=== PATIENT | female | born 1945 | race African-American/Black ===

== ENCOUNTER 2019-01-06 11:32 | Emergency (ER) | payer MEDICARE, MEDICAID ==
[~2019-01-06] VITALS: Ht 165.1 cm; Wt 105.0 kg
[~2019-01-06 11:32] MED LIST: ATOR20TA65 MT; CHOL200059 MT; GABA-531 MT; HYDR-523 PO; LOSA100T32 MT; MUPI15CR13 TP; OMEP40CA34 MT
[2019-01-06] MEDS ORDERED: ONDANSETRON HCL 4MG/2ML INJ IV ONE (15:00)
[2019-01-06] MEDS ORDERED: MORPHINE SULFATE 10 MG/ML CPJ IV ONE (15:00)
[2019-01-06] MEDS ORDERED: FAMOTIDINE 20MG/2ML VIAL IV ONE (15:00)
[2019-01-06 15:34] LABS: BASOPHILS % 0.8 % (0.0-2.0); EOSINOPHILS % 0.1 % (0.0-5.0); HEMATOCRIT. 41.1 % (36.0-48.0); HEMOGLOBIN. 13.7 g/dL (12.0-16.0); LYMPHOCYTES % 24.2 % (20.0-50.0); MEAN CORPUSCULAR HEMOGLOBIN 29.4 pg (28.0-32.0); MEAN CORPUSCULAR VOLUME 88.2 fL (81.0-99.0); MEAN PLATELET VOLUME 9.3 fl (7.4-10.4); MONOCYTES % 5.3 % (2.0-8.0); NEUTROPHILS % 69.6 % (40.0-76.0); PLATELET 169 x1000/uL (130-400); RED BLOOD CELL COUNT 4.66 mill/uL (4.2-5.4); RED CELL DISTRIBUTION WIDTH 14.3 % (11.6-14.6)
[2019-01-06 15:37] LABS: CHLORIDE 107 mEq/L (98-107)
[2019-01-06 15:40] LABS: PROTHROMBIN TIME 10.6 sec (9.6-11.0)
[2019-01-06 16:28] LABS: CLARITY URINE CLEAR (CLEAR); COLOR URINE YELLOW (YELLOW); KETONES URINE TRACE (NEGATIVE); LEUKOCYTE ESTERASE URINE 2+ (NEGATIVE); NITRITE URINE NEGATIVE (NEGATIVE); OCCULT BLOOD URINE NEGATIVE (NEGATIVE); PROTEIN URINE NEGATIVE (NEGATIVE); SPECIFIC GRAVITY URINE 1.015 (1.005-1.030); UROBILINOGEN URINE 0.2 E.U./dL (0.2-1.0)
[2019-01-06] MEDS ORDERED: TRAMADOL 50MG TABLET PO ONE (17:45)
[2019-01-06 22:52] VITALS: BP 135/78
== END 2019-01-06 23:08 | disposition home or self-care (01) ==
LOC: ER 11:32
DX: R10.13 Epigastric pain (principal); M54.6 Pain in thoracic spine; G89.29 Other chronic pain; F41.9 Anxiety disorder, unspecified; J44.9 Chronic obstructive pulmonary disease, unspecified; Z87.440 Personal history of urinary (tract) infections; Z87.09 Personal history of other diseases of the respiratory system; Z90.710 Acquired absence of both cervix and uterus; K59.00 Constipation, unspecified; Z79.899 Other long term (current) drug therapy
CPT/HCPCS: 36415; 80053; 81003; 83690; 85025; 85610; 96374; 96375; 99283; J2270; J2405; J3490

== ENCOUNTER 2020-11-12 03:10 | Emergency (ER) | payer MEDICARE, MEDICAID ==
[~2020-11-12] VITALS: Ht 170.2 cm; Wt 89.0 kg
[~2020-11-12 03:10] MED LIST changes: -GABA-531 MT; +GABA-532 MT; +OMEP40CA20 MT; -OMEP40CA34 MT
[2020-11-12] MEDS: ONDANSETRON HCL 4MG/2ML INJ IV STA (04:09)
[2020-11-12] MEDS: SODIUM CHLORIDE 0.9% 1,000 ML IV ONE (04:09)
[2020-11-12 04:12] LABS: BASOPHILS % 0.6 % (0.0-2.0); EOSINOPHILS % 0.4 % (0.0-5.0); HEMATOCRIT. 39.6 % (36.0-48.0); HEMOGLOBIN. 13.7 g/dL (12.0-16.0); LYMPHOCYTES % 24.5 % (20.0-50.0); MEAN CORPUSCULAR VOLUME 89.9 fL (81.0-99.0); MEAN PLATELET VOLUME 8.7 fl (7.4-10.4); MONOCYTES % 8.8 % (2.0-8.0); NEUTROPHILS % 65.7 % (40.0-76.0); PLATELET 163 x1000/uL (130-400); RED BLOOD CELL COUNT 4.41 mill/uL (4.2-5.4); RED CELL DISTRIBUTION WIDTH 14.4 % (11.6-14.6)
[2020-11-12 04:22] LABS: CHLORIDE 108 mEq/L (98-107)
[2020-11-12] MEDS: HYDROCODONE/ACETAMINOPHEN 5/325MG TABLET PO ONE (05:45)
[2020-11-12] MEDS ORDERED: PANT40SU MT (05:47)
[2020-11-12] MEDS ORDERED: METO5TAB86 MT (05:47)
[2020-11-12 06:00] VITALS: BP 138/90
== END 2020-11-12 06:32 | disposition home or self-care (01) ==
LOC: ER 03:10
DX: M54.9 Dorsalgia, unspecified (principal); I49.9 Cardiac arrhythmia, unspecified
CPT/HCPCS: 36415; 71045; 74176; 80053; 83605; 83690; 85025; 93005; 96361; 96374; 99285; J2405; J7030

== ENCOUNTER 2021-01-05 14:05 | Emergency (ER) | payer MEDICARE, MEDICAID ==
[~2021-01-05] VITALS: Ht 165.1 cm; Wt 77.0 kg
[~2021-01-05 14:05] MED LIST changes: +METO5TAB86 MT; +PANT40SU MT
[2021-01-05 15:37] LABS: CHLORIDE 105 mEq/L (98-107); EOSINOPHILS % 4.2 % (0.0-5.0); HEMATOCRIT. 36.7 % (36.0-48.0); HEMOGLOBIN. 12.1 g/dL (12.0-16.0); LYMPHOCYTES % 47.4 % (20.0-50.0); MEAN CORPUSCULAR HEMOGLOBIN 29.9 pg (28.0-32.0); MEAN CORPUSCULAR VOLUME 90.8 fL (81.0-99.0); MEAN PLATELET VOLUME 9.8 fl (7.4-10.4); MONOCYTES % 9.5 % (2.0-8.0); NEUTROPHILS % 37.9 % (40.0-76.0); PLATELET 133 x1000/uL (130-400); RED BLOOD CELL COUNT 4.04 mill/uL (4.2-5.4); RED CELL DISTRIBUTION WIDTH 13.4 % (11.6-14.6)
[2021-01-05] MEDS ORDERED: ACETAMINOPHEN 650MG/20.3ML UDC PO ONE (17:30)
[2021-01-05] MEDS ORDERED: KETOROLAC 15MG/ML VIAL IV ONE (18:15)
[2021-01-05 20:17] VITALS: BP 138/88
== END 2021-01-05 20:27 | disposition home or self-care (01) ==
LOC: ER 14:05
DX: M79.89 Other specified soft tissue disorders (principal); F41.9 Anxiety disorder, unspecified; J44.9 Chronic obstructive pulmonary disease, unspecified; E78.00 Pure hypercholesterolemia, unspecified; I10 Essential (primary) hypertension; Z87.440 Personal history of urinary (tract) infections; Z90.710 Acquired absence of both cervix and uterus; Z79.899 Other long term (current) drug therapy
CPT/HCPCS: 36415; 71045; 80053; 83880; 84484; 85025; 93005; 93970; 96374; 99285; J1885

== ENCOUNTER 2021-02-21 07:55 | Emergency (ER) | payer MEDICARE, MEDICAID ==
[~2021-02-21] VITALS: Ht 160 cm; Wt 89.0 kg
[2021-02-21] MEDS ORDERED: ACETAMINOPHEN 325MG TABLET PO ONE (08:30)
[2021-02-21] MEDS ORDERED: VISCOUS LIDOCAINE 2% 15 ML UDC MM PRN (08:30)
[2021-02-21] MEDS ORDERED: CEFP200T13 MT (08:47)
[2021-02-21] MEDS ORDERED: LIDO15CR11 TP (08:50)
[2021-02-21 08:57] VITALS: BP 137/87
== END 2021-02-21 08:57 | disposition home or self-care (01) ==
LOC: ER 07:55
DX: N76.6 Ulceration of vulva (principal); J44.1 Chronic obstructive pulmonary disease with (acute) exacerbation; E78.00 Pure hypercholesterolemia, unspecified; I10 Essential (primary) hypertension; Z88.9 Allergy status to unspecified drugs, medicaments and biological substances; Z88.6 Allergy status to analgesic agent
CPT/HCPCS: 99283

== ENCOUNTER 2021-06-22 10:13 | Inpatient (IN) | payer MEDICARE, MEDICAID ==
[2021-06-22] VITALS (48 sets, daily range): BP systolic 47–145; BP diastolic 37–92
[~2021-06-22] VITALS: Ht 172.7 cm; Wt 88.5 kg
[~2021-06-22 10:13] MED LIST changes: +CEFP200T13 MT; +LIDO15CR11 TP
[2021-06-22] MEDS ORDERED: PANTOPRAZOLE SODIUM 40 MG/VIAL IV STA (10:21)
[2021-06-22] MEDS ORDERED: ETOMIDATE 2MG/ML 10ML VIAL IV ONE (10:30)
[2021-06-22] MEDS ORDERED: SODIUM CHLORIDE 0.9% 1,000 ML IV ONE ×2 (10:30→12:00)
[2021-06-22] MEDS ORDERED: PROPOFOL 10MG/ML 100ML 100 ML IV ONE (10:30)
[2021-06-22 10:47] LABS: BG BASE EXCESS -5.3 mmol/L (-2.0-2.0); BG CARBOXYHEMOGLOBIN 0.5 % (0.5-1.5); BG DEOXYHEMOGLOBIN 3.5 % (0.0-5.0); BG HCO3 ACT 17.9 mmol/L (22.0-26.0); BG METHEMOGLOBIN 0.3 % (0.0-1.5); BG OXYGEN SATURATION 96.5 % (92.0-98.5); BG OXYHEMOGLOBIN 95.7 % (94.0-97.0); BG PCO2 28.5 mmHg (35.0-45.0); BG PH 7.415 (7.350-7.450); BG PO2 85.3 mmHg (75.0-100.0); BG SAMPLE SITE RIGHT BRACHIAL; BG TOTAL HEMOGLOBIN 13.1 g/dL (12.0-18.0); BG VENT MODE ROOM AIR
[2021-06-22 10:48] LABS: BASOPHILS % 0.1 % (0.0-2.0); EOSINOPHILS % 0.1 % (0.0-5.0); HEMATOCRIT. 38.5 % (36.0-48.0); HEMOGLOBIN. 12.6 g/dL (12.0-16.0); LYMPHOCYTES % 27.7 % (20.0-50.0); MEAN CORPUSCULAR HEMOGLOBIN 30.2 pg (28.0-32.0); MEAN CORPUSCULAR VOLUME 92.3 fL (81.0-99.0); MEAN PLATELET VOLUME 10.4 fl (7.4-10.4); MONOCYTES % 7.7 % (2.0-8.0); NEUTROPHILS % 64.4 % (40.0-76.0); PLATELET 166 x1000/uL (130-400); RED BLOOD CELL COUNT 4.17 mill/uL (4.2-5.4); RED CELL DISTRIBUTION WIDTH 14.5 % (11.6-14.6)
[2021-06-22 10:55] LABS: CHLORIDE 111 mEq/L (98-107)
[2021-06-22 11:04] LABS: CREATINE KINASE 212 IU/L (26-192)
[2021-06-22 11:45] LABS: CLARITY URINE CLEAR (CLEAR); COLOR URINE YELLOW (YELLOW); KETONES URINE TRACE (NEGATIVE); LEUKOCYTE ESTERASE URINE NEGATIVE (NEGATIVE); NITRITE URINE NEGATIVE (NEGATIVE); OCCULT BLOOD URINE NEGATIVE (NEGATIVE); PH URINE 5.5 (4.5-8.0); PROTEIN URINE TRACE (NEGATIVE); SPECIFIC GRAVITY URINE 1.036 (1.005-1.030); UROBILINOGEN URINE 0.2 E.U./dL (0.2-1.0)
[2021-06-22] MEDS ORDERED: PIPERACILLIN/TAZ 3.375G PREMIX 50 ML IV ONE (12:00)
[2021-06-22 12:17] LABS: *AMPHETAMINES SCREEN URINE NEGATIVE (NEGATIVE); *BARBITURATES SCREEN URINE NEGATIVE (NEGATIVE); *BENZODIAZEPINES SCREEN URINE NEGATIVE (NEGATIVE); *COCAINE SCREEN URINE NEGATIVE (NEGATIVE); CANNABINOID URINE SCREEN NEGATIVE (NEGATIVE); METHADONE URINE SCREEN NEGATIVE (NEGATIVE); OPIATES URINE SCREEN PRESUMTIVE POSITIVE (NEGATIVE); PHENCYCLIDINE URINE SCREEN NEGATIVE (NEGATIVE)
[2021-06-22 12:41] LABS: BG BASE EXCESS -3.2 mmol/L (-2.0-2.0); BG CARBOXYHEMOGLOBIN 0.3 % (0.5-1.5); BG DEOXYHEMOGLOBIN 1.8 % (0.0-5.0); BG FRACTION INSPIRED OXYGEN 100; BG HCO3 ACT 23.4 mmol/L (22.0-26.0); BG METHEMOGLOBIN 0.4 % (0.0-1.5); BG OXYGEN SATURATION 98.2 % (92.0-98.5); BG OXYHEMOGLOBIN 97.5 % (94.0-97.0); BG PCO2 47.8 mmHg (35.0-45.0); BG PH 7.307 (7.350-7.450); BG PO2 126.8 mmHg (75.0-100.0); BG SAMPLE SITE RIGHT RADIAL; BG TOTAL HEMOGLOBIN 12.7 g/dL (12.0-18.0); BG VENT MODE VENT - AC
[2021-06-22] MEDS ORDERED: ACETAMINOPHEN 325MG TABLET PO PRN ×2 (13:00)
[2021-06-22] MEDS ORDERED: DOCUSATE SODIUM 100MG CAPSULE PO PRN (13:00)
[2021-06-22] MEDS ORDERED: NOREPINEPHRINE 8 MG in DEXT 5% WATER 242 ML IV PRN (13:00)
[2021-06-22] MEDS ORDERED: ZOLPIDEM TARTRATE 5MG TABLET PO PRN (13:00)
[2021-06-22] MEDS ORDERED: ENOXAPARIN 40MG/0.4ML SYR SUBCUT SCH (13:00)
[2021-06-22] MEDS ORDERED: IPRATROPIUM/ALBUTEROL 0.5-3(2.5)MG/3ML NEB NEB PRN (13:00)
[2021-06-22] MEDS ORDERED: CLONIDINE 0.1MG TABLET PO PRN (13:00)
[2021-06-22] MEDS ORDERED: ONDANSETRON HCL 4MG/2ML INJ IV PRN (13:00)
[2021-06-22] MEDS ORDERED: PIPERACILLIN/TAZ 3.375G PREMIX 50 ML IV SCH (13:00)
[2021-06-22] MEDS ORDERED: MAGNESIUM/ALUMINUM HYDROXIDE/SIMETHICONE 30ML UDC PO PRN (13:00)
[2021-06-22] MEDS ORDERED: NITROGLYCERIN 0.4MG TABLET SL SL PRN (13:00)
[2021-06-22] MEDS ORDERED: FENTANYL CITRATE/PF 1,000 MCG in SODIUM CHLORIDE 0.9% 80 ML IV PRN (13:15)
[2021-06-22] MEDS: DEXT 5%/LACTATED RINGERS 1,000 ML IV SCH ×2 (13:26→23:13)
[2021-06-22] MEDS: PROPOFOL 10MG/ML 100ML 100 ML IV SCH ×2 (13:28→18:01)
[2021-06-22] MEDS: METHYLPREDNISOLONE SOD SUCC 40 MG/ML VIAL IV SCH ×2 (13:31→22:16)
[2021-06-22 13:36] LABS: T4 FREE 0.98 ng/dL (0.76-1.46)
[2021-06-22] MEDS: PIPERACILLIN/TAZOBACTAM 3.375G in DEXT 5% WATER 50ML IV SCH ×2 (14:34→22:16)
[2021-06-22 14:41] LABS: FOLIC ACID (FOLATE) SERUM >20 ng/mL ng/mL (>5.38); VITAMIN B12 SERUM 258 pg/mL (211-911)
[2021-06-22] MEDS ORDERED: VANCOMYCIN 1,750 MG in DEXT 5% WATER 500 ML IV NR (16:00)
[2021-06-22] MEDS: IPRATROPIUM/ALBUTEROL 0.5-3(2.5)MG/3ML NEB HHN SCH ×2 (16:48→20:09)
[2021-06-22] MEDS ORDERED: ENOXAPARIN 30MG/0.3ML SYR SUBCUT SCH (18:00)
[2021-06-22] MEDS: FENTANYL 2500MCG/250ML PMX 250 ML IV PRN (19:53)
[2021-06-22] MEDS: PROPOFOL 10MG/ML 100ML 100 ML IV PRN (23:09)
[2021-06-23] VITALS (89 sets, daily range): BP systolic 66–142; BP diastolic 38–104
[2021-06-23] MEDS: IPRATROPIUM/ALBUTEROL 0.5-3(2.5)MG/3ML NEB HHN SCH ×2 (00:25→04:19)
[2021-06-23] MEDS: ENOXAPARIN 60MG/0.6ML SYR SUBCUT NR ×2 (01:06→01:15)
[2021-06-23] MEDS: METHYLPREDNISOLONE SOD SUCC 40 MG/ML VIAL IV SCH ×2 (05:29→17:22)
[2021-06-23] MEDS: PIPERACILLIN/TAZOBACTAM 3.375G in DEXT 5% WATER 50ML IV SCH ×3 (05:30→21:54)
[2021-06-23] MEDS: DEXT 5%/LACTATED RINGERS 1,000 ML IV SCH ×3 (05:30→21:54)
[2021-06-23] MEDS ORDERED: VANCOMYCIN 1GM PMX (XELLIA) 200 ML IV SCH (06:00)
[2021-06-23 06:33] LABS: BASOPHILS % 0.3 % (0.0-2.0); HEMATOCRIT. 32.9 % (36.0-48.0); HEMOGLOBIN. 11.3 g/dL (12.0-16.0); LYMPHOCYTES % 8.2 % (20.0-50.0); MEAN CORPUSCULAR HEMOGLOBIN 31.1 pg (28.0-32.0); MEAN PLATELET VOLUME 10.6 fl (7.4-10.4); MONOCYTES % 6.5 % (2.0-8.0); PLATELET 98 x1000/uL (130-400); RED BLOOD CELL COUNT 3.62 mill/uL (4.2-5.4); RED CELL DISTRIBUTION WIDTH 14.5 % (11.6-14.6)
[2021-06-23 07:04] LABS: CHLORIDE 112 mEq/L (98-107)
[2021-06-23 07:13] LABS: PHOSPHORUS 2.1 mg/dL (2.5-4.9)
[2021-06-23] MEDS: PROPOFOL 10MG/ML 100ML 100 ML IV PRN ×4 (07:37→22:10)
[2021-06-23] MEDS: ASPIRIN 81MG EC TABLET PO SCH (08:46)
[2021-06-23] MEDS: ENOXAPARIN 100MG/ML SYR SUBCUT SCH ×2 (09:00→21:00)
[2021-06-23] MEDS ORDERED: ASPIRIN 325MG EC TABLET PO SCH (09:00)
[2021-06-23] MEDS: PANTOPRAZOLE SODIUM 40 MG/VIAL IV SCH (09:22)
[2021-06-23] MEDS: ZINC SULFATE 220 MG ( 50 ) CAPSULE PO SCH (09:25)
[2021-06-23 12:57] LABS: HEPATITIS B SURFACE ANTIGEN NEGATIVE
[2021-06-23 13:00] LABS: BG BASE EXCESS 1.9 mmol/L (-2.0-2.0); BG CARBOXYHEMOGLOBIN 0.3 % (0.5-1.5); BG FRACTION INSPIRED OXYGEN 80; BG HCO3 ACT 26.3 mmol/L (22.0-26.0); BG OXYHEMOGLOBIN 98.7 % (94.0-97.0); BG PH 7.435 (7.350-7.450); BG SAMPLE SITE RIGHT RADIAL; BG TOTAL HEMOGLOBIN 11.8 g/dL (12.0-18.0); BG VENT MODE VENT - AC
[2021-06-23] MEDS: VANCOMYCIN 1GM PMX (XELLIA) 200 ML IV SCH (14:49)
[2021-06-23] MEDS ORDERED: VANCOMYCIN 1250MG in DEXTROSE 5% WATER 250ML IV SCH (16:00)
[2021-06-24] VITALS (91 sets, daily range): BP systolic 80–142; BP diastolic 37–115
[2021-06-24] MEDS: VANCOMYCIN 1GM PMX (XELLIA) 200 ML IV SCH ×2 (01:19→13:11)
[2021-06-24] MEDS: PROPOFOL 10MG/ML 100ML 100 ML IV SCH ×5 (01:20→17:03)
[2021-06-24] MEDS: IPRATROPIUM/ALBUTEROL 0.5-3(2.5)MG/3ML NEB HHN SCH ×5 (04:34→20:27)
[2021-06-24] MEDS: DEXT 5%/LACTATED RINGERS 1,000 ML IV SCH ×2 (04:44→12:51)
[2021-06-24] MEDS: PIPERACILLIN/TAZOBACTAM 3.375G in DEXT 5% WATER 50ML IV SCH ×3 (06:03→22:22)
[2021-06-24] MEDS: FENTANYL 2500MCG/250ML PMX 250 ML IV PRN (06:03)
[2021-06-24 06:34] LABS: CHLORIDE 110 mEq/L (98-107)
[2021-06-24] MEDS: METHYLPREDNISOLONE SOD SUCC 40 MG/ML VIAL IV SCH ×2 (08:37→17:02)
[2021-06-24] MEDS: PANTOPRAZOLE SODIUM 40 MG/VIAL IV SCH (08:37)
[2021-06-24] MEDS: ASPIRIN 81MG EC TABLET PO SCH (08:38)
[2021-06-24] MEDS: ZINC SULFATE 220 MG ( 50 ) CAPSULE PO SCH (08:38)
[2021-06-24] MEDS: ENOXAPARIN 100MG/ML SYR SUBCUT SCH (08:39)
[2021-06-24 09:31] LABS: BASOPHILS % 0.4 % (0.0-2.0); EOSINOPHILS % 0.8 % (0.0-5.0); HEMATOCRIT. 31.4 % (36.0-48.0); HEMOGLOBIN. 10.5 g/dL (12.0-16.0); MEAN CORPUSCULAR HEMOGLOBIN 30.4 pg (28.0-32.0); MEAN CORPUSCULAR VOLUME 91.1 fL (81.0-99.0); MEAN PLATELET VOLUME 11.8 fl (7.4-10.4); MONOCYTES % 10.1 % (2.0-8.0); NEUTROPHILS % 78.7 % (40.0-76.0); PLATELET 94 x1000/uL (130-400); RED BLOOD CELL COUNT 3.44 mill/uL (4.2-5.4); RED CELL DISTRIBUTION WIDTH 14.8 % (11.6-14.6)
[2021-06-24 09:35] LABS: BG BASE EXCESS 2.8 mmol/L (-2.0-2.0); BG CARBOXYHEMOGLOBIN 0.3 % (0.5-1.5); BG DEOXYHEMOGLOBIN 5.5 % (0.0-5.0); BG FRACTION INSPIRED OXYGEN 40; BG HCO3 ACT 26.8 mmol/L (22.0-26.0); BG METHEMOGLOBIN 0.4 % (0.0-1.5); BG OXYGEN SATURATION 94.5 % (92.0-98.5); BG OXYHEMOGLOBIN 93.8 % (94.0-97.0); BG PCO2 39.2 mmHg (35.0-45.0); BG PH 7.453 (7.350-7.450); BG PO2 70.2 mmHg (75.0-100.0); BG SAMPLE SITE LEFT RADIAL; BG TOTAL HEMOGLOBIN 11.3 g/dL (12.0-18.0); BG VENT MODE VENT - AC
[2021-06-24] MEDS ORDERED: FUROSEMIDE 100MG/10ML VIAL IVP NR (13:45)
[2021-06-24 14:46] LABS: PARTIAL THROMBOPLASTIN TIME 30.4 sec (23.4-31.0); PROTHROMBIN TIME 10.7 sec (9.6-11.0)
[2021-06-24] MEDS: ENOXAPARIN 40MG/0.4ML SYR SUBCUT SCH (17:00)
[2021-06-24] MEDS: FUROSEMIDE 40MG/4ML VIAL IVP SCH (17:02)
[2021-06-25] VITALS (58 sets, daily range): BP systolic 80–141; BP diastolic 30–91
[2021-06-25] MEDS: IPRATROPIUM/ALBUTEROL 0.5-3(2.5)MG/3ML NEB HHN SCH ×6 (00:27→20:40)
[2021-06-25] MEDS: VANCOMYCIN 1GM PMX (XELLIA) 200 ML IV SCH ×2 (01:17→21:16)
[2021-06-25] MEDS: PROPOFOL 10MG/ML 100ML 100 ML IV PRN ×3 (01:19→23:58)
[2021-06-25] MEDS: FENTANYL 2500MCG/250ML PMX 250 ML IV PRN ×2 (03:47→21:59)
[2021-06-25] MEDS: FUROSEMIDE 40MG/4ML VIAL IVP SCH ×2 (05:32→18:55)
[2021-06-25] MEDS: PIPERACILLIN/TAZOBACTAM 3.375G in DEXT 5% WATER 50ML IV SCH ×3 (05:55→21:56)
[2021-06-25 06:49] LABS: CHLORIDE 108 mEq/L (98-107)
[2021-06-25] MEDS ORDERED: FUROSEMIDE 40MG/4ML VIAL IVP SCH (07:15)
[2021-06-25 07:29] LABS: HEMATOCRIT. 30.1 % (36.0-48.0); HEMOGLOBIN. 10.1 g/dL (12.0-16.0); MEAN CORPUSCULAR HEMOGLOBIN 30.9 pg (28.0-32.0); MEAN CORPUSCULAR VOLUME 91.8 fL (81.0-99.0); MEAN PLATELET VOLUME 11.5 fl (7.4-10.4); PLATELET 88 x1000/uL (130-400); RED BLOOD CELL COUNT 3.28 mill/uL (4.2-5.4); RED CELL DISTRIBUTION WIDTH 14.5 % (11.6-14.6)
[2021-06-25 08:12] LABS: PLATELET ESTIMATE DECREASED
[2021-06-25] MEDS: METHYLPREDNISOLONE SOD SUCC 40 MG/ML VIAL IV SCH ×2 (09:00→17:41)
[2021-06-25] MEDS: ASPIRIN 81MG EC TABLET PO SCH (09:00)
[2021-06-25] MEDS: PANTOPRAZOLE SODIUM 40 MG/VIAL IV SCH (09:00)
[2021-06-25] MEDS: ZINC SULFATE 220 MG ( 50 ) CAPSULE PO SCH (09:00)
[2021-06-25 09:32] LABS: BG BASE EXCESS 4.1 mmol/L (-2.0-2.0); BG CARBOXYHEMOGLOBIN 0.3 % (0.5-1.5); BG DEOXYHEMOGLOBIN 4.3 % (0.0-5.0); BG FRACTION INSPIRED OXYGEN 40; BG HCO3 ACT 28.1 mmol/L (22.0-26.0); BG METHEMOGLOBIN 0.2 % (0.0-1.5); BG OXYGEN SATURATION 95.7 % (92.0-98.5); BG OXYHEMOGLOBIN 95.2 % (94.0-97.0); BG PCO2 39.8 mmHg (35.0-45.0); BG PH 7.466 (7.350-7.450); BG PO2 79.2 mmHg (75.0-100.0); BG SAMPLE SITE RIGHT RADIAL; BG TOTAL HEMOGLOBIN 10.8 g/dL (12.0-18.0); BG VENT MODE VENT - AC
[2021-06-25] MEDS ORDERED: LIDOCAINE HCL 1% 20ML VIAL (Pyxis) INJ ONE (11:20)
[2021-06-25] MEDS: ACETYLCYSTEINE 100MG/ML 10% VIAL 4ML INH SCH (15:51)
[2021-06-25] MEDS: ENOXAPARIN 40MG/0.4ML SYR SUBCUT SCH (17:41)
[2021-06-26] VITALS (97 sets, daily range): BP systolic 81–148; BP diastolic 32–115
[2021-06-26] MEDS: ACETYLCYSTEINE 100MG/ML 10% VIAL 4ML INH SCH ×3 (00:15→16:07)
[2021-06-26] MEDS: IPRATROPIUM/ALBUTEROL 0.5-3(2.5)MG/3ML NEB HHN SCH ×6 (00:16→20:51)
[2021-06-26] MEDS: PROPOFOL 10MG/ML 100ML 100 ML IV PRN ×2 (03:10→08:45)
[2021-06-26] MEDS: PIPERACILLIN/TAZOBACTAM 3.375G in DEXT 5% WATER 50ML IV SCH (05:02)
[2021-06-26] MEDS: FUROSEMIDE 40MG/4ML VIAL IVP SCH ×2 (05:02→16:57)
[2021-06-26 06:10] LABS: CHLORIDE 104 mEq/L (98-107)
[2021-06-26 07:33] LABS: BG BASE EXCESS 7.9 mmol/L (-2.0-2.0); BG CARBOXYHEMOGLOBIN 0.3 % (0.5-1.5); BG DEOXYHEMOGLOBIN 5.2 % (0.0-5.0); BG HCO3 ACT 32.6 mmol/L (22.0-26.0); BG METHEMOGLOBIN 0.3 % (0.0-1.5); BG OXYGEN SATURATION 94.8 % (92.0-98.5); BG OXYHEMOGLOBIN 94.2 % (94.0-97.0); BG PCO2 45.9 mmHg (35.0-45.0); BG PH 7.469 (7.350-7.450); BG PO2 75.5 mmHg (75.0-100.0); BG SAMPLE SITE RIGHT RADIAL; BG TOTAL HEMOGLOBIN 11.1 g/dL (12.0-18.0); BG VENT MODE VENT - AC
[2021-06-26] MEDS ORDERED: PHENYLEPHRINE 100 MG in DEXT 5% WATER 240 ML IV PRN (07:45)
[2021-06-26] MEDS: ASPIRIN 81MG EC TABLET PO SCH (08:12)
[2021-06-26] MEDS: ACETAMINOPHEN 650MG/20.3ML UDC PO PRN (08:12)
[2021-06-26] MEDS: METHYLPREDNISOLONE SOD SUCC 40 MG/ML VIAL IV SCH ×2 (08:12→16:11)
[2021-06-26] MEDS: PANTOPRAZOLE SODIUM 40 MG/VIAL IV SCH (08:12)
[2021-06-26] MEDS: ZINC SULFATE 220 MG ( 50 ) CAPSULE PO SCH (08:13)
[2021-06-26] MEDS ORDERED: DOCUSATE SODIUM SUGAR FREE 100MG/10ML UDC NG PRN (09:30)
[2021-06-26] MEDS ORDERED: POTASSIUM CHLORIDE 20MEQ/PACKET PO NR (09:30)
[2021-06-26] MEDS: SPIRONOLACTONE 25MG TABLET PO SCH (10:03)
[2021-06-26 10:16] LABS: BASOPHILS % 0.2 % (0.0-2.0); EOSINOPHILS % 6.6 % (0.0-5.0); HEMATOCRIT. 31.4 % (36.0-48.0); HEMOGLOBIN. 10.5 g/dL (12.0-16.0); LYMPHOCYTES % 12.4 % (20.0-50.0); MEAN CORPUSCULAR HEMOGLOBIN 30.3 pg (28.0-32.0); MEAN CORPUSCULAR VOLUME 90.7 fL (81.0-99.0); MEAN PLATELET VOLUME 10.9 fl (7.4-10.4); MONOCYTES % 12.9 % (2.0-8.0); NEUTROPHILS % 67.9 % (40.0-76.0); PLATELET 80 x1000/uL (130-400); RED BLOOD CELL COUNT 3.46 mill/uL (4.2-5.4); RED CELL DISTRIBUTION WIDTH 14.4 % (11.6-14.6)
[2021-06-26] MEDS: QUETIAPINE FUMARATE 25MG TABLET PO SCH ×2 (11:30→21:58)
[2021-06-26] MEDS: CEFEPIME 2,000 MG in DEXT 5% WATER 100 ML IV SCH (13:05)
[2021-06-26] MEDS: METRONIDAZOLE 500 MG PREMIX 100 ML IV SCH ×2 (13:54→22:20)
[2021-06-26] MEDS ORDERED: DOPAMINE 400MG/250ML PREMIX 250 ML IV PRN (14:30)
[2021-06-26] MEDS ORDERED: PROPOFOL 10MG/ML 100ML 100 ML IV PRN (15:00)
[2021-06-26] MEDS: VANCOMYCIN 1GM PMX (XELLIA) 200 ML IV SCH (16:11)
[2021-06-26] MEDS: ENOXAPARIN 40MG/0.4ML SYR SUBCUT SCH (16:11)
[2021-06-26] MEDS ORDERED: LACTULOSE 20G/30ML UDC PO PRN ×2 (16:15→21:00)
[2021-06-26] MEDS ORDERED: LACTULOSE 20G/30ML UDC PO SCH (16:15)
[2021-06-26] MEDS: MIDAZOLAM 100MG/100ML PMX 100 ML IV PRN (16:21)
[2021-06-26] MEDS ORDERED: LACTULOSE 20G/30ML UDC PO NR (17:00)
[2021-06-26] MEDS: FENTANYL 2500MCG/250ML PMX 250 ML IV PRN (19:56)
[2021-06-27] VITALS (101 sets, daily range): BP systolic 88–157; BP diastolic 53–94
[2021-06-27] MEDS: CEFEPIME 2,000 MG in DEXT 5% WATER 100 ML IV SCH ×2 (00:23→12:09)
[2021-06-27] MEDS: IPRATROPIUM/ALBUTEROL 0.5-3(2.5)MG/3ML NEB HHN SCH ×6 (00:27→20:45)
[2021-06-27] MEDS: ACETYLCYSTEINE 100MG/ML 10% VIAL 4ML INH SCH ×3 (00:38→17:23)
[2021-06-27] MEDS ORDERED: NOREPINEPHRINE 32 MG in DEXT 5% WATER 218 ML IV PRN (01:00)
[2021-06-27 06:01] LABS: CHLORIDE 104 mEq/L (98-107)
[2021-06-27] MEDS: METRONIDAZOLE 500 MG PREMIX 100 ML IV SCH ×3 (06:30→20:27)
[2021-06-27] MEDS: FUROSEMIDE 40MG/4ML VIAL IVP SCH ×2 (06:30→17:01)
[2021-06-27 07:47] LABS: HEMATOCRIT. 32.7 % (36.0-48.0); HEMOGLOBIN. 11.1 g/dL (12.0-16.0); MEAN CORPUSCULAR HEMOGLOBIN 30.2 pg (28.0-32.0); MEAN CORPUSCULAR VOLUME 88.6 fL (81.0-99.0); MEAN PLATELET VOLUME 10.8 fl (7.4-10.4); PLATELET 125 x1000/uL (130-400); RED BLOOD CELL COUNT 3.68 mill/uL (4.2-5.4); RED CELL DISTRIBUTION WIDTH 14.3 % (11.6-14.6)
[2021-06-27] MEDS: QUETIAPINE FUMARATE 25MG TABLET PO SCH ×2 (08:02→20:26)
[2021-06-27] MEDS: PANTOPRAZOLE SODIUM 40 MG/VIAL IV SCH (08:02)
[2021-06-27] MEDS: METHYLPREDNISOLONE SOD SUCC 40 MG/ML VIAL IV SCH ×2 (08:02→17:01)
[2021-06-27] MEDS: ASPIRIN 81MG EC TABLET PO SCH (08:02)
[2021-06-27] MEDS: SPIRONOLACTONE 25MG TABLET PO SCH (08:02)
[2021-06-27] MEDS: ZINC SULFATE 220 MG ( 50 ) CAPSULE PO SCH (08:02)
[2021-06-27 08:21] LABS: BG BASE EXCESS 10.7 mmol/L (-2.0-2.0); BG CARBOXYHEMOGLOBIN 0.3 % (0.5-1.5); BG DEOXYHEMOGLOBIN 4.5 % (0.0-5.0); BG FRACTION INSPIRED OXYGEN 40; BG HCO3 ACT 35.1 mmol/L (22.0-26.0); BG METHEMOGLOBIN 0.3 % (0.0-1.5); BG OXYGEN SATURATION 95.5 % (92.0-98.5); BG OXYHEMOGLOBIN 94.9 % (94.0-97.0); BG PCO2 45.7 mmHg (35.0-45.0); BG PH 7.503 (7.350-7.450); BG PO2 78.8 mmHg (75.0-100.0); BG SAMPLE SITE RIGHT RADIAL; BG TOTAL HEMOGLOBIN 12.1 g/dL (12.0-18.0); BG VENT MODE VENT - AC
[2021-06-27 08:30] LABS: PLATELET ESTIMATE SLIGHTLY DECREASED
[2021-06-27] MEDS: VANCOMYCIN 1GM PMX (XELLIA) 200 ML IV SCH (09:08)
[2021-06-27] MEDS: VANCOMYCIN 750MG PMX (XELLIA) 150 ML IV SCH ×2 (10:38→22:55)
[2021-06-27] MEDS ORDERED: GUAIFENESIN-DM 200MG-20MG/10ML UDC PO PRN (15:15)
[2021-06-27] MEDS: GUAIFENESIN 200MG/10ML SUGAR FREE UDC PO PRN ×2 (15:26→20:26)
[2021-06-27] MEDS: ENOXAPARIN 40MG/0.4ML SYR SUBCUT SCH (17:02)
[2021-06-27] MEDS: MIDAZOLAM 100MG/100ML PMX 100 ML IV PRN (20:30)
[2021-06-27] MEDS: FENTANYL 2500MCG/250ML PMX 250 ML IV PRN (20:31)
[2021-06-28] VITALS (92 sets, daily range): BP systolic 88–146; BP diastolic 31–92
[2021-06-28] MEDS: IPRATROPIUM/ALBUTEROL 0.5-3(2.5)MG/3ML NEB HHN SCH ×6 (00:39→21:02)
[2021-06-28] MEDS: ACETYLCYSTEINE 100MG/ML 10% VIAL 4ML INH SCH ×3 (00:39→16:12)
[2021-06-28] MEDS: CEFEPIME 2,000 MG in DEXT 5% WATER 100 ML IV SCH ×2 (00:41→11:03)
[2021-06-28] MEDS: METRONIDAZOLE 500 MG PREMIX 100 ML IV SCH ×3 (04:40→20:32)
[2021-06-28] MEDS: FUROSEMIDE 40MG/4ML VIAL IVP SCH ×2 (06:16→17:15)
[2021-06-28] MEDS: GUAIFENESIN 200MG/10ML SUGAR FREE UDC PO PRN ×2 (07:59→20:32)
[2021-06-28] MEDS: METHYLPREDNISOLONE SOD SUCC 40 MG/ML VIAL IV SCH ×2 (08:00→17:15)
[2021-06-28] MEDS: SPIRONOLACTONE 25MG TABLET PO SCH (08:00)
[2021-06-28] MEDS: ASPIRIN 81MG EC TABLET PO SCH (08:00)
[2021-06-28] MEDS: ZINC SULFATE 220 MG ( 50 ) CAPSULE PO SCH (08:00)
[2021-06-28] MEDS: PANTOPRAZOLE SODIUM 40 MG/VIAL IV SCH (08:00)
[2021-06-28] MEDS: QUETIAPINE FUMARATE 25MG TABLET PO SCH ×2 (08:00→20:32)
[2021-06-28 08:27] LABS: HEMATOCRIT. 34.3 % (36.0-48.0); HEMOGLOBIN. 11.4 g/dL (12.0-16.0); MEAN CORPUSCULAR HEMOGLOBIN 30.2 pg (28.0-32.0); MEAN CORPUSCULAR VOLUME 91.4 fL (81.0-99.0); MEAN PLATELET VOLUME 10.3 fl (7.4-10.4); PLATELET 152 x1000/uL (130-400); RED BLOOD CELL COUNT 3.75 mill/uL (4.2-5.4); RED CELL DISTRIBUTION WIDTH 14.3 % (11.6-14.6)
[2021-06-28 09:11] LABS: CHLORIDE 103 mEq/L (98-107)
[2021-06-28 10:27] LABS: PLATELET ESTIMATE NORMAL
[2021-06-28] MEDS: MIDODRINE HCL 5MG TABLET PO SCH ×2 (12:11→17:15)
[2021-06-28] MEDS: ENOXAPARIN 40MG/0.4ML SYR SUBCUT SCH (17:16)
[2021-06-28] MEDS: FENTANYL 2500MCG/250ML PMX 250 ML IV PRN (18:53)
[2021-06-29] VITALS (56 sets, daily range): BP systolic 86–137; BP diastolic 30–85
[2021-06-29] MEDS: IPRATROPIUM/ALBUTEROL 0.5-3(2.5)MG/3ML NEB HHN SCH ×6 (00:12→20:14)
[2021-06-29] MEDS: ACETYLCYSTEINE 100MG/ML 10% VIAL 4ML INH SCH ×3 (00:13→15:41)
[2021-06-29] MEDS: GUAIFENESIN 200MG/10ML SUGAR FREE UDC PO PRN ×2 (00:22→04:18)
[2021-06-29] MEDS: CEFEPIME 2,000 MG in DEXT 5% WATER 100 ML IV SCH ×2 (00:22→12:10)
[2021-06-29] MEDS: METRONIDAZOLE 500 MG PREMIX 100 ML IV SCH ×3 (04:50→21:22)
[2021-06-29] MEDS: FUROSEMIDE 40MG/4ML VIAL IVP SCH ×2 (05:40→18:52)
[2021-06-29] MEDS: ZINC SULFATE 220 MG ( 50 ) CAPSULE PO SCH (09:24)
[2021-06-29] MEDS: METHYLPREDNISOLONE SOD SUCC 40 MG/ML VIAL IV SCH ×2 (09:24→16:12)
[2021-06-29] MEDS: PANTOPRAZOLE SODIUM 40 MG/VIAL IV SCH (09:24)
[2021-06-29] MEDS: QUETIAPINE FUMARATE 25MG TABLET PO SCH ×2 (09:24→21:22)
[2021-06-29] MEDS: MIDODRINE HCL 5MG TABLET PO SCH ×3 (09:25→16:13)
[2021-06-29] MEDS: SPIRONOLACTONE 25MG TABLET PO SCH (09:25)
[2021-06-29] MEDS: ASPIRIN 81MG EC TABLET PO SCH (09:25)
[2021-06-29 11:01] LABS: BASOPHILS % 0.1 % (0.0-2.0); EOSINOPHILS % 1.2 % (0.0-5.0); HEMATOCRIT. 33.3 % (36.0-48.0); HEMOGLOBIN. 11.3 g/dL (12.0-16.0); LYMPHOCYTES % 13.6 % (20.0-50.0); MEAN CORPUSCULAR HEMOGLOBIN 30.5 pg (28.0-32.0); MEAN CORPUSCULAR VOLUME 90.1 fL (81.0-99.0); MEAN PLATELET VOLUME 9.3 fl (7.4-10.4); MONOCYTES % 9.2 % (2.0-8.0); NEUTROPHILS % 75.9 % (40.0-76.0); PLATELET 190 x1000/uL (130-400); RED BLOOD CELL COUNT 3.69 mill/uL (4.2-5.4); RED CELL DISTRIBUTION WIDTH 14.6 % (11.6-14.6)
[2021-06-29 11:20] LABS: CHLORIDE 102 mEq/L (98-107)
[2021-06-29 11:33] LABS: PHOSPHORUS 2.8 mg/dL (2.5-4.9)
[2021-06-29] MEDS ORDERED: POTASSIUM CHLORIDE 20MEQ/PACKET PO SCH ×2 (12:00→13:00)
[2021-06-29] MEDS ORDERED: POTASSIUM CHLORIDE INJ 40 MEQ in DEXT 5% WATER 250 ML IV ONE (14:45)
[2021-06-29] MEDS: KCL 20MEQ/100ML X 2 FOR TOTAL KCL 40MEQ/200ML IV SCH ×2 (16:12→18:52)
[2021-06-29] MEDS: ENOXAPARIN 40MG/0.4ML SYR SUBCUT SCH (16:17)
[2021-06-29 16:22] LABS: BG BASE EXCESS 11.1 mmol/L (-2.0-2.0); BG CARBOXYHEMOGLOBIN 0.3 % (0.5-1.5); BG DEOXYHEMOGLOBIN 1.7 % (0.0-5.0); BG FRACTION INSPIRED OXYGEN 40; BG METHEMOGLOBIN 0.3 % (0.0-1.5); BG OXYGEN SATURATION 98.3 % (92.0-98.5); BG OXYHEMOGLOBIN 97.7 % (94.0-97.0); BG PCO2 43.1 mmHg (35.0-45.0); BG PH 7.527 (7.350-7.450); BG PO2 123.6 mmHg (75.0-100.0); BG SAMPLE SITE RIGHT RADIAL; BG TOTAL HEMOGLOBIN 11.7 g/dL (12.0-18.0); BG VENT MODE VENT - CPAP
[2021-06-29 17:41] LABS: BG BASE EXCESS 10.5 mmol/L (-2.0-2.0); BG CARBOXYHEMOGLOBIN 0.3 % (0.5-1.5); BG DEOXYHEMOGLOBIN 2.5 % (0.0-5.0); BG FRACTION INSPIRED OXYGEN 40; BG HCO3 ACT 32.2 mmol/L (22.0-26.0); BG METHEMOGLOBIN 0.3 % (0.0-1.5); BG OXYGEN SATURATION 97.5 % (92.0-98.5); BG OXYHEMOGLOBIN 96.9 % (94.0-97.0); BG PCO2 32.7 mmHg (35.0-45.0); BG PH 7.611 (7.350-7.450); BG SAMPLE SITE RIGHT RADIAL; BG VENT MODE VENT - AC
[2021-06-30] VITALS (44 sets, daily range): BP systolic 106–137; BP diastolic 51–86
[2021-06-30] MEDS: CEFEPIME 2,000 MG in DEXT 5% WATER 100 ML IV SCH ×3 (00:04→23:58)
[2021-06-30] MEDS: ACETYLCYSTEINE 100MG/ML 10% VIAL 4ML INH SCH ×2 (00:22→08:19)
[2021-06-30] MEDS: IPRATROPIUM/ALBUTEROL 0.5-3(2.5)MG/3ML NEB HHN SCH ×6 (00:22→21:17)
[2021-06-30] MEDS: METRONIDAZOLE 500 MG PREMIX 100 ML IV SCH ×3 (05:30→21:22)
[2021-06-30 05:44] LABS: BASOPHILS % 0.5 % (0.0-2.0); EOSINOPHILS % 0.1 % (0.0-5.0); HEMATOCRIT. 31.9 % (36.0-48.0); HEMOGLOBIN. 10.7 g/dL (12.0-16.0); LYMPHOCYTES % 13.4 % (20.0-50.0); MEAN CORPUSCULAR VOLUME 89.5 fL (81.0-99.0); MEAN PLATELET VOLUME 9.5 fl (7.4-10.4); PLATELET 214 x1000/uL (130-400); RED BLOOD CELL COUNT 3.56 mill/uL (4.2-5.4); RED CELL DISTRIBUTION WIDTH 14.8 % (11.6-14.6)
[2021-06-30 05:51] LABS: CHLORIDE 106 mEq/L (98-107)
[2021-06-30] MEDS: FUROSEMIDE 40MG/4ML VIAL IVP SCH ×2 (06:20→16:38)
[2021-06-30] MEDS: ZINC SULFATE 220 MG ( 50 ) CAPSULE PO SCH (09:09)
[2021-06-30] MEDS: METHYLPREDNISOLONE SOD SUCC 40 MG/ML VIAL IV SCH ×2 (09:09→16:38)
[2021-06-30] MEDS: PANTOPRAZOLE SODIUM 40 MG/VIAL IV SCH (09:09)
[2021-06-30] MEDS: QUETIAPINE FUMARATE 25MG TABLET PO SCH ×2 (09:09→21:37)
[2021-06-30] MEDS: ASPIRIN 81MG EC TABLET PO SCH (09:09)
[2021-06-30] MEDS: SPIRONOLACTONE 25MG TABLET PO SCH (09:09)
[2021-06-30] MEDS: MIDODRINE HCL 5MG TABLET PO SCH ×3 (09:09→16:38)
[2021-06-30] MEDS ORDERED: ACETAZOLAMIDE SODIUM 500MG/VIAL IV NR (11:00)
[2021-06-30 12:04] LABS: BG BASE EXCESS 9.8 mmol/L (-2.0-2.0); BG CARBOXYHEMOGLOBIN 0.3 % (0.5-1.5); BG DEOXYHEMOGLOBIN 5.3 % (0.0-5.0); BG FRACTION INSPIRED OXYGEN 40; BG HCO3 ACT 33.9 mmol/L (22.0-26.0); BG OXYGEN SATURATION 94.7 % (92.0-98.5); BG OXYHEMOGLOBIN 94.4 % (94.0-97.0); BG PCO2 43.5 mmHg (35.0-45.0); BG PO2 72.4 mmHg (75.0-100.0); BG SAMPLE SITE RIGHT RADIAL; BG TOTAL HEMOGLOBIN 12.7 g/dL (12.0-18.0); BG VENT MODE COOL AEROSOL
[2021-06-30] MEDS: ENOXAPARIN 40MG/0.4ML SYR SUBCUT SCH (16:39)
[2021-06-30] MEDS: KETOROLAC 15MG/ML VIAL IV PRN (20:30)
[2021-07-01] VITALS (13 sets, daily range): BP systolic 102–142; BP diastolic 60–76
[2021-07-01] MEDS: IPRATROPIUM/ALBUTEROL 0.5-3(2.5)MG/3ML NEB HHN SCH ×6 (01:07→20:56)
[2021-07-01] MEDS: KETOROLAC 15MG/ML VIAL IV PRN ×3 (03:09→20:03)
[2021-07-01] MEDS: METRONIDAZOLE 500 MG PREMIX 100 ML IV SCH ×3 (05:05→21:59)
[2021-07-01] MEDS: FUROSEMIDE 40MG/4ML VIAL IVP SCH ×2 (05:15→16:39)
[2021-07-01 06:25] LABS: BASOPHILS % 0.4 % (0.0-2.0); HEMATOCRIT. 34.7 % (36.0-48.0); HEMOGLOBIN. 11.6 g/dL (12.0-16.0); LYMPHOCYTES % 9.9 % (20.0-50.0); MEAN CORPUSCULAR HEMOGLOBIN 30.3 pg (28.0-32.0); MEAN CORPUSCULAR VOLUME 90.2 fL (81.0-99.0); MEAN PLATELET VOLUME 9.8 fl (7.4-10.4); MONOCYTES % 6.1 % (2.0-8.0); NEUTROPHILS % 83.6 % (40.0-76.0); PLATELET 277 x1000/uL (130-400); RED BLOOD CELL COUNT 3.84 mill/uL (4.2-5.4); RED CELL DISTRIBUTION WIDTH 14.8 % (11.6-14.6)
[2021-07-01 06:30] LABS: CHLORIDE 105 mEq/L (98-107)
[2021-07-01 08:49] LABS: BG BASE EXCESS 6.8 mmol/L (-2.0-2.0); BG CARBOXYHEMOGLOBIN 0.2 % (0.5-1.5); BG DEOXYHEMOGLOBIN 6.2 % (0.0-5.0); BG FRACTION INSPIRED OXYGEN 35; BG HCO3 ACT 30.3 mmol/L (22.0-26.0); BG METHEMOGLOBIN 0.2 % (0.0-1.5); BG OXYGEN SATURATION 93.8 % (92.0-98.5); BG OXYHEMOGLOBIN 93.4 % (94.0-97.0); BG PCO2 39.2 mmHg (35.0-45.0); BG PH 7.506 (7.350-7.450); BG PO2 67.2 mmHg (75.0-100.0); BG SAMPLE SITE RIGHT RADIAL; BG TOTAL HEMOGLOBIN 12.3 g/dL (12.0-18.0); BG VENT MODE COOL AEROSOL
[2021-07-01] MEDS ORDERED: PNEUMOCOCCAL 23-VAL P-SAC VAC 0.5 ML IM ONE (09:00)
[2021-07-01] MEDS: PANTOPRAZOLE SODIUM 40 MG/VIAL IV SCH (09:13)
[2021-07-01] MEDS: QUETIAPINE FUMARATE 25MG TABLET PO SCH ×2 (09:13→21:53)
[2021-07-01] MEDS: METHYLPREDNISOLONE SOD SUCC 40 MG/ML VIAL IV SCH ×2 (09:13→16:39)
[2021-07-01] MEDS: ZINC SULFATE 220 MG ( 50 ) CAPSULE PO SCH (09:14)
[2021-07-01] MEDS: ASPIRIN 81MG EC TABLET PO SCH (09:14)
[2021-07-01] MEDS: SPIRONOLACTONE 25MG TABLET PO SCH (09:14)
[2021-07-01] MEDS: MIDODRINE HCL 5MG TABLET PO SCH (09:14)
[2021-07-01] MEDS: CEFEPIME 2,000 MG in DEXT 5% WATER 100 ML IV SCH ×2 (12:50→23:58)
[2021-07-01] MEDS: ENOXAPARIN 40MG/0.4ML SYR SUBCUT SCH (16:39)
[2021-07-01] MEDS ORDERED: POTASSIUM CHLORIDE 20MEQ TABLET SR PO NR (17:30)
[2021-07-02] VITALS (12 sets, daily range): BP systolic 96–121; BP diastolic 54–76
[2021-07-02] MEDS: IPRATROPIUM/ALBUTEROL 0.5-3(2.5)MG/3ML NEB HHN SCH ×6 (00:53→20:33)
[2021-07-02] MEDS: KETOROLAC 15MG/ML VIAL IV PRN ×3 (01:34→20:02)
[2021-07-02] MEDS: FUROSEMIDE 40MG/4ML VIAL IVP SCH ×2 (05:45→17:49)
[2021-07-02] MEDS: METRONIDAZOLE 500 MG PREMIX 100 ML IV SCH ×3 (05:45→21:26)
[2021-07-02] MEDS: QUETIAPINE FUMARATE 25MG TABLET PO SCH ×2 (08:27→20:00)
[2021-07-02] MEDS: ZINC SULFATE 220 MG ( 50 ) CAPSULE PO SCH (08:27)
[2021-07-02] MEDS: PANTOPRAZOLE SODIUM 40 MG/VIAL IV SCH (08:27)
[2021-07-02] MEDS: ASPIRIN 81MG EC TABLET PO SCH (08:27)
[2021-07-02] MEDS: SPIRONOLACTONE 25MG TABLET PO SCH (08:27)
[2021-07-02] MEDS ORDERED: METHYLPREDNISOLONE SOD SUCC 40 MG/ML VIAL IV SCH (09:00)
[2021-07-02] MEDS: CEFEPIME 2,000 MG in DEXT 5% WATER 100 ML IV SCH ×2 (12:16→23:19)
[2021-07-02] MEDS: LOSARTAN POTASSIUM 25 MG TABLET PO SCH (12:16)
[2021-07-02] MEDS: ENOXAPARIN 40MG/0.4ML SYR SUBCUT SCH (17:48)
[2021-07-03] VITALS (12 sets, daily range): BP systolic 90–164; BP diastolic 45–77
[2021-07-03] MEDS: IPRATROPIUM/ALBUTEROL 0.5-3(2.5)MG/3ML NEB HHN SCH ×7 (00:48→23:25)
[2021-07-03] MEDS: FUROSEMIDE 40MG/4ML VIAL IVP SCH (06:08)
[2021-07-03] MEDS: METRONIDAZOLE 500 MG PREMIX 100 ML IV SCH ×3 (06:09→20:54)
[2021-07-03] MEDS: LOSARTAN POTASSIUM 25 MG TABLET PO SCH (08:05)
[2021-07-03] MEDS: ASPIRIN 81MG EC TABLET PO SCH (08:05)
[2021-07-03] MEDS: QUETIAPINE FUMARATE 25MG TABLET PO SCH (08:05)
[2021-07-03] MEDS: ZINC SULFATE 220 MG ( 50 ) CAPSULE PO SCH (08:05)
[2021-07-03] MEDS: PANTOPRAZOLE SODIUM 40 MG/VIAL IV SCH (08:06)
[2021-07-03] MEDS: SPIRONOLACTONE 25MG TABLET PO SCH (08:06)
[2021-07-03] MEDS: KETOROLAC 15MG/ML VIAL IV PRN (08:07)
[2021-07-03] MEDS ORDERED: PREDNISONE 20MG TABLET PO SCH (09:00)
[2021-07-03] MEDS: CEFEPIME 2,000 MG in DEXT 5% WATER 100 ML IV SCH (12:36)
[2021-07-03] MEDS: ENOXAPARIN 40MG/0.4ML SYR SUBCUT SCH (18:17)
[2021-07-03 18:28] LABS: CHLORIDE 108 mEq/L (98-107)
[2021-07-03] MEDS: ACETAMINOPHEN 650MG/20.3ML UDC PO PRN (20:53)
[2021-07-04] VITALS (20 sets, daily range): BP systolic 94–125; BP diastolic 45–81
[2021-07-04] MEDS: CEFEPIME 2,000 MG in DEXT 5% WATER 100 ML IV SCH ×2 (00:26→12:22)
[2021-07-04] MEDS: IPRATROPIUM/ALBUTEROL 0.5-3(2.5)MG/3ML NEB HHN SCH ×5 (03:55→20:18)
[2021-07-04] MEDS: METRONIDAZOLE 500 MG PREMIX 100 ML IV SCH ×3 (05:40→21:09)
[2021-07-04] MEDS: LOSARTAN POTASSIUM 25 MG TABLET PO SCH (09:00)
[2021-07-04] MEDS ORDERED: FUROSEMIDE 40MG TABLET PO SCH (09:00)
[2021-07-04] MEDS ORDERED: QUETIAPINE FUMARATE 25MG TABLET PO SCH (09:00)
[2021-07-04] MEDS ORDERED: METOPROLOL SUCCINATE 50MG ER TABLET PO SCH (09:00)
[2021-07-04] MEDS ORDERED: PREDNISONE 10MG TABLET PO SCH (09:00)
[2021-07-04] MEDS: ASPIRIN 81MG EC TABLET PO SCH (09:37)
[2021-07-04] MEDS: PANTOPRAZOLE SODIUM 40 MG/VIAL IV SCH (09:37)
[2021-07-04] MEDS: ZINC SULFATE 220 MG ( 50 ) CAPSULE PO SCH (09:37)
[2021-07-04] MEDS: SPIRONOLACTONE 25MG TABLET PO SCH (09:38)
[2021-07-04 10:55] LABS: BASOPHILS % 0.8 % (0.0-2.0); EOSINOPHILS % 0.4 % (0.0-5.0); HEMATOCRIT. 35.7 % (36.0-48.0); LYMPHOCYTES % 18.9 % (20.0-50.0); MEAN CORPUSCULAR HEMOGLOBIN 30.3 pg (28.0-32.0); MEAN CORPUSCULAR VOLUME 90.1 fL (81.0-99.0); MEAN PLATELET VOLUME 8.9 fl (7.4-10.4); MONOCYTES % 9.5 % (2.0-8.0); NEUTROPHILS % 70.4 % (40.0-76.0); PLATELET 327 x1000/uL (130-400); RED BLOOD CELL COUNT 3.96 mill/uL (4.2-5.4); RED CELL DISTRIBUTION WIDTH 14.5 % (11.6-14.6)
[2021-07-04 11:10] LABS: CHLORIDE 109 mEq/L (98-107)
[2021-07-04 11:15] LABS: PHOSPHORUS 2.3 mg/dL (2.5-4.9)
[2021-07-04] MEDS ORDERED: POTASSIUM CHLORIDE 20MEQ TABLET SR PO NR (11:30)
[2021-07-04] MEDS ORDERED: POTASSIUM CHLORIDE INJ 40 MEQ in DEXT 5% WATER 250 ML IV NR (13:00)
[2021-07-04] MEDS: ENOXAPARIN 40MG/0.4ML SYR SUBCUT SCH (16:32)
[2021-07-04] MEDS ORDERED: TRAMADOL 50MG TABLET PO PRN (17:11)
== END 2021-07-04 23:20 | DRG 870 ==
LOC: ER 10:13 → MICUSO 11:30 → ENRESERV 11:37 → 5EST 06-30 17:45
PROVIDERS: ADMIT Internal Medicine; ATTEND Internal Medicine
PROC: 5A1955Z Respiratory Ventilation, Greater than 96 Consecutive Hours (ICD-10-PCS; principal; 2021-06-22)
PROC: 0BH18EZ Insertion of Endotracheal Airway into Trachea, Via Natural or Artificial Opening Endoscopic (ICD-10-PCS; 2021-06-22)
PROC: 5A09357 Assistance with Respiratory Ventilation, Less than 24 Consecutive Hours, Continuous Positive Airway Pressure (ICD-10-PCS; 2021-06-22)
PROC: 4A10X4Z Monitoring of Central Nervous Electrical Activity, External Approach (ICD-10-PCS; 2021-06-23)
PROC: 05HY33Z Insertion of Infusion Device into Upper Vein, Percutaneous Approach (ICD-10-PCS; 2021-06-25)
PROC: B54MZZA Ultrasonography of Right Upper Extremity Veins, Guidance (ICD-10-PCS; 2021-06-25)
DX: A41.59 Other Gram-negative sepsis (principal); G92.8 Other toxic encephalopathy; J96.21 Acute and chronic respiratory failure with hypoxia; G82.50 Quadriplegia, unspecified; J15.0 Pneumonia due to Klebsiella pneumoniae; J69.0 Pneumonitis due to inhalation of food and vomit; I50.43 Acute on chronic combined systolic (congestive) and diastolic (congestive) heart failure; I21.4 Non-ST elevation (NSTEMI) myocardial infarction; E87.2 Acidosis; E44.0 Moderate protein-calorie malnutrition; I31.3 Pericardial effusion (noninflammatory); I42.9 Cardiomyopathy, unspecified; I67.82 Cerebral ischemia; Z99.11 Dependence on respirator [ventilator] status; J44.0 Chronic obstructive pulmonary disease with (acute) lower respiratory infection; R65.20 Severe sepsis without septic shock; E83.51 Hypocalcemia; I11.0 Hypertensive heart disease with heart failure; E78.00 Pure hypercholesterolemia, unspecified; F41.9 Anxiety disorder, unspecified; K59.00 Constipation, unspecified; R74.01 Elevation of levels of liver transaminase levels; E80.6 Other disorders of bilirubin metabolism; F10.10 Alcohol abuse, uncomplicated; F11.10 Opioid abuse, uncomplicated; Y90.9 Presence of alcohol in blood, level not specified; D69.6 Thrombocytopenia, unspecified; R53.81 Other malaise; R13.10 Dysphagia, unspecified; R41.3 Other amnesia; E78.5 Hyperlipidemia, unspecified; M48.02 Spinal stenosis, cervical region; Z20.822 Contact with and (suspected) exposure to COVID-19; Z88.6 Allergy status to analgesic agent; Z88.8 Allergy status to other drugs, medicaments and biological substances; Z79.899 Other long term (current) drug therapy; Z79.891 Long term (current) use of opiate analgesic; Z82.49 Family history of ischemic heart disease and other diseases of the circulatory system; Z90.710 Acquired absence of both cervix and uterus; I25.2 Old myocardial infarction
CPT/HCPCS: 36415; 36600; 70551; 71045; 71250; 72141; 72146; 72148; 76700; 76937; 80048; 80053; 80061; 80202; 80305; 81003; 82375; 82550; 82607; 82746; 82805; 82962; 83036; 83540; 83550; 83605; 83735; 83880; 84100; 84145; 84439; 84443; 84478; 84484; 85025; 86705; 86709; 86803; 86850; 86900; 87070; 87077; 87186; 87340; 87426; 90732; 92610; 93005; 93306; 93970; 94002; 94003; 94640; 95816; 97116; 97162; 97166; 97530; 97535; 99291; C1725; C1769; C9113; J0692; J1120; J1650; J1885; J1940; J2250; J2370; J2405; J2543; J2704; J2920; J3010; J3370; J3480; J3490; J7030; J7060; J7121; J7512; J7608

== ENCOUNTER 2021-07-04 23:20 | Inpatient (IN) | payer MEDICARE, MEDICAID ==
[~2021-07-04] VITALS: Ht 172.7 cm; Wt 88.5 kg
[2021-07-04 20:00] VITALS: BP 99/67
[2021-07-04 23:50] VITALS: BP 99/67
[2021-07-05] MEDS ORDERED: IPRATROPIUM/ALBUTEROL 0.5-3(2.5)MG/3ML NEB HHN PRN (00:45)
[2021-07-05] MEDS ORDERED: ACETAMINOPHEN 650MG/20.3ML UDC PO PRN (00:45)
[2021-07-05] MEDS ORDERED: ONDANSETRON HCL 4MG/2ML INJ IV PRN (00:45)
[2021-07-05] MEDS ORDERED: DOCUSATE SODIUM SUGAR FREE 100MG/10ML UDC PO PRN (00:45)
[2021-07-05] MEDS: CEFEPIME 2,000 MG in DEXT 5% WATER 100 ML IV SCH ×2 (01:52→13:33)
[2021-07-05] MEDS: IPRATROPIUM/ALBUTEROL 0.5-3(2.5)MG/3ML NEB HHN SCH ×5 (04:52→21:34)
[2021-07-05] MEDS: METRONIDAZOLE 500 MG PREMIX 100 ML IV SCH ×3 (05:48→21:31)
[2021-07-05 06:44] LABS: BASOPHILS % 0.6 % (0.0-2.0); EOSINOPHILS % 0.5 % (0.0-5.0); HEMATOCRIT. 33.4 % (36.0-48.0); HEMOGLOBIN. 11.4 g/dL (12.0-16.0); LYMPHOCYTES % 26.3 % (20.0-50.0); MEAN CORPUSCULAR HEMOGLOBIN 30.8 pg (28.0-32.0); MEAN CORPUSCULAR VOLUME 90.1 fL (81.0-99.0); MEAN PLATELET VOLUME 9.1 fl (7.4-10.4); MONOCYTES % 8.8 % (2.0-8.0); NEUTROPHILS % 63.8 % (40.0-76.0); PLATELET 293 x1000/uL (130-400); RED BLOOD CELL COUNT 3.71 mill/uL (4.2-5.4); RED CELL DISTRIBUTION WIDTH 14.8 % (11.6-14.6)
[2021-07-05 06:50] LABS: CHLORIDE 113 mEq/L (98-107)
[2021-07-05 07:35] LABS: CLARITY URINE CLEAR (CLEAR); COLOR URINE DARK YELLOW (YELLOW); KETONES URINE TRACE (NEGATIVE); LEUKOCYTE ESTERASE URINE TRACE (NEGATIVE); NITRITE URINE NEGATIVE (NEGATIVE); OCCULT BLOOD URINE NEGATIVE (NEGATIVE); PH URINE 5.5 (4.5-8.0); PROTEIN URINE 1+ (NEGATIVE); SPECIFIC GRAVITY URINE 1.028 (1.005-1.030); UROBILINOGEN URINE 0.2 E.U./dL (0.2-1.0)
[2021-07-05 07:58] VITALS: BP 105/72
[2021-07-05] MEDS: PANTOPRAZOLE SODIUM 40 MG/VIAL IV SCH (08:37)
[2021-07-05] MEDS: ASPIRIN 81MG TABLET PO SCH (08:37)
[2021-07-05] MEDS: ZINC SULFATE 220 MG ( 50 ) CAPSULE PO SCH (08:38)
[2021-07-05] MEDS: QUETIAPINE FUMARATE 25MG TABLET PO SCH (08:39)
[2021-07-05] MEDS: FUROSEMIDE 40MG TABLET PO SCH (08:39)
[2021-07-05] MEDS: SPIRONOLACTONE 25MG TABLET PO SCH (08:40)
[2021-07-05] MEDS: ENOXAPARIN 40MG/0.4ML SYR SUBCUT SCH (08:44)
[2021-07-05] MEDS: METOPROLOL SUCCINATE 50MG ER TABLET PO SCH (08:48)
[2021-07-05] MEDS: LOSARTAN POTASSIUM 25 MG TABLET PO SCH (08:49)
[2021-07-05] MEDS ORDERED: PREDNISONE 10MG TABLET PO SCH (09:00)
[2021-07-05 20:00] VITALS: BP 107/70
[2021-07-05 21:45] VITALS: BP 107/70
[2021-07-06] MEDS: CEFEPIME 2,000 MG in DEXT 5% WATER 100 ML IV SCH (00:57)
[2021-07-06] MEDS: IPRATROPIUM/ALBUTEROL 0.5-3(2.5)MG/3ML NEB HHN SCH ×6 (04:00→21:10)
[2021-07-06] MEDS: METRONIDAZOLE 500 MG PREMIX 100 ML IV SCH (05:10)
[2021-07-06 07:59] VITALS: BP 114/81
[2021-07-06 08:08] LABS: CHLORIDE 112 mEq/L (98-107)
[2021-07-06 08:09] LABS: BASOPHILS % 0.7 % (0.0-2.0); HEMATOCRIT. 33.4 % (36.0-48.0); HEMOGLOBIN. 11.1 g/dL (12.0-16.0); LYMPHOCYTES % 23.4 % (20.0-50.0); MEAN CORPUSCULAR HEMOGLOBIN 30.3 pg (28.0-32.0); MEAN CORPUSCULAR VOLUME 90.9 fL (81.0-99.0); MONOCYTES % 8.2 % (2.0-8.0); NEUTROPHILS % 66.7 % (40.0-76.0); PLATELET 237 x1000/uL (130-400); RED BLOOD CELL COUNT 3.67 mill/uL (4.2-5.4); RED CELL DISTRIBUTION WIDTH 14.9 % (11.6-14.6)
[2021-07-06 08:21] LABS: FERRITIN 125 ng/mL (10-291)
[2021-07-06 08:28] LABS: TOTAL IRON BINDING CAPACITY 178 ug/dL (250-450)
[2021-07-06] MEDS ORDERED: POTASSIUM CHLORIDE 20MEQ TABLET SR PO SCH (08:30)
[2021-07-06] MEDS: PANTOPRAZOLE SODIUM 40 MG/VIAL IV SCH (09:00)
[2021-07-06] MEDS: ENOXAPARIN 40MG/0.4ML SYR SUBCUT SCH (09:00)
[2021-07-06] MEDS: ASPIRIN 81MG TABLET PO SCH (10:47)
[2021-07-06] MEDS: LOSARTAN POTASSIUM 25 MG TABLET PO SCH (10:47)
[2021-07-06] MEDS: FUROSEMIDE 40MG TABLET PO SCH (10:47)
[2021-07-06] MEDS: ZINC SULFATE 220 MG ( 50 ) CAPSULE PO SCH (10:48)
[2021-07-06] MEDS: QUETIAPINE FUMARATE 25MG TABLET PO SCH (10:50)
[2021-07-06] MEDS: METOPROLOL SUCCINATE 50MG ER TABLET PO SCH (10:52)
[2021-07-06] MEDS: SPIRONOLACTONE 25MG TABLET PO SCH (10:54)
[2021-07-06 11:14] LABS: VITAMIN B12 SERUM 439 pg/mL (211-911)
[2021-07-06 11:17] LABS: FOLIC ACID (FOLATE) SERUM > 20.00 ng/mL (>5.38)
[2021-07-06 20:00] VITALS: BP 97/61
[2021-07-06] MEDS: ZOLPIDEM TARTRATE 5MG TABLET PO PRN (22:04)
[2021-07-07] MEDS: IPRATROPIUM/ALBUTEROL 0.5-3(2.5)MG/3ML NEB HHN SCH ×2 (01:20→04:41)
[2021-07-07 06:48] LABS: CHLORIDE 110 mEq/L (98-107)
[2021-07-07 08:00] VITALS: BP 96/67
[2021-07-07] MEDS: METOPROLOL SUCCINATE 50MG ER TABLET PO SCH (09:00)
[2021-07-07] MEDS: LOSARTAN POTASSIUM 25 MG TABLET PO SCH (09:00)
[2021-07-07] MEDS: ASPIRIN 81MG TABLET PO SCH (09:12)
[2021-07-07] MEDS: QUETIAPINE FUMARATE 25MG TABLET PO SCH (09:12)
[2021-07-07] MEDS: PANTOPRAZOLE SODIUM 40 MG/VIAL IV SCH (09:12)
[2021-07-07] MEDS: ZINC SULFATE 220 MG ( 50 ) CAPSULE PO SCH (09:17)
[2021-07-07] MEDS: ENOXAPARIN 40MG/0.4ML SYR SUBCUT SCH (09:19)
[2021-07-07] MEDS: SPIRONOLACTONE 25MG TABLET PO SCH (12:00)
[2021-07-07] MEDS: FUROSEMIDE 40MG TABLET PO SCH (12:00)
[2021-07-07] MEDS ORDERED: POTASSIUM CHLORIDE 20MEQ TABLET SR PO NR (14:45)
[2021-07-07] MEDS: CYANOCOBALAMIN 1000MCG/ML VIAL IM SCH (17:45)
[2021-07-07] MEDS: ZOLPIDEM TARTRATE 5MG TABLET PO PRN (21:37)
[2021-07-07 21:52] VITALS: BP 102/68
[2021-07-08 08:00] VITALS: BP 130/76
[2021-07-08] MEDS: ZINC SULFATE 220 MG ( 50 ) CAPSULE PO SCH (10:17)
[2021-07-08] MEDS: CYANOCOBALAMIN 1000MCG/ML VIAL IM SCH (10:18)
[2021-07-08] MEDS: LOSARTAN POTASSIUM 25 MG TABLET PO SCH (10:18)
[2021-07-08] MEDS: PANTOPRAZOLE SODIUM 40 MG/VIAL IV SCH (10:18)
[2021-07-08] MEDS: METOPROLOL SUCCINATE 50MG ER TABLET PO SCH (10:19)
[2021-07-08] MEDS: ENOXAPARIN 40MG/0.4ML SYR SUBCUT SCH (10:20)
[2021-07-08] MEDS: ASPIRIN 81MG TABLET PO SCH (10:21)
[2021-07-08] MEDS: SPIRONOLACTONE 25MG TABLET PO SCH (10:21)
[2021-07-08] MEDS: FUROSEMIDE 40MG TABLET PO SCH (10:21)
[2021-07-08] MEDS: QUETIAPINE FUMARATE 25MG TABLET PO SCH (10:22)
[2021-07-08 20:00] VITALS: BP 90/65
[2021-07-08] MEDS: ZOLPIDEM TARTRATE 5MG TABLET PO PRN (21:18)
[2021-07-09 06:45] LABS: BASOPHILS % 1.2 % (0.0-2.0); EOSINOPHILS % 2.1 % (0.0-5.0); HEMOGLOBIN. 11.5 g/dL (12.0-16.0); LYMPHOCYTES % 28.9 % (20.0-50.0); MEAN CORPUSCULAR HEMOGLOBIN 30.7 pg (28.0-32.0); MEAN CORPUSCULAR VOLUME 90.5 fL (81.0-99.0); MEAN PLATELET VOLUME 9.8 fl (7.4-10.4); MONOCYTES % 8.1 % (2.0-8.0); NEUTROPHILS % 59.7 % (40.0-76.0); PLATELET 186 x1000/uL (130-400); RED BLOOD CELL COUNT 3.75 mill/uL (4.2-5.4); RED CELL DISTRIBUTION WIDTH 15.3 % (11.6-14.6)
[2021-07-09 07:40] LABS: CHLORIDE 112 mEq/L (98-107)
[2021-07-09 08:00] VITALS: BP 105/71
[2021-07-09] MEDS: ASPIRIN 81MG TABLET PO SCH (08:53)
[2021-07-09] MEDS: ZINC SULFATE 220 MG ( 50 ) CAPSULE PO SCH (08:54)
[2021-07-09] MEDS: FUROSEMIDE 40MG TABLET PO SCH (08:54)
[2021-07-09] MEDS: FAMOTIDINE 20MG TABLET PO SCH ×2 (08:54→21:03)
[2021-07-09] MEDS: CYANOCOBALAMIN 1000MCG/ML VIAL IM SCH (08:54)
[2021-07-09] MEDS: QUETIAPINE FUMARATE 25MG TABLET PO SCH (08:54)
[2021-07-09] MEDS: SPIRONOLACTONE 25MG TABLET PO SCH (08:56)
[2021-07-09] MEDS: LOSARTAN POTASSIUM 25 MG TABLET PO SCH (08:56)
[2021-07-09] MEDS: METOPROLOL SUCCINATE 50MG ER TABLET PO SCH (08:56)
[2021-07-09] MEDS: ENOXAPARIN 40MG/0.4ML SYR SUBCUT SCH (08:57)
[2021-07-09] MEDS ORDERED: ACETAMINOPHEN 325MG TABLET PO PRN (11:15)
[2021-07-09 20:00] VITALS: BP 98/53
[2021-07-09] MEDS: ZOLPIDEM TARTRATE 5MG TABLET PO PRN (21:03)
[2021-07-10 08:00] VITALS: BP 94/63
[2021-07-10] MEDS: LOSARTAN POTASSIUM 25 MG TABLET PO SCH (09:00)
[2021-07-10] MEDS: FUROSEMIDE 40MG TABLET PO SCH (09:00)
[2021-07-10] MEDS: SPIRONOLACTONE 25MG TABLET PO SCH (09:00)
[2021-07-10] MEDS: METOPROLOL SUCCINATE 50MG ER TABLET PO SCH (09:00)
[2021-07-10] MEDS: FAMOTIDINE 20MG TABLET PO SCH ×2 (09:27→20:16)
[2021-07-10] MEDS: ASPIRIN 81MG TABLET PO SCH (09:27)
[2021-07-10] MEDS: CYANOCOBALAMIN 1000MCG/ML VIAL IM SCH (09:27)
[2021-07-10] MEDS: ENOXAPARIN 40MG/0.4ML SYR SUBCUT SCH (09:27)
[2021-07-10] MEDS: ZINC SULFATE 220 MG ( 50 ) CAPSULE PO SCH (09:27)
[2021-07-10] MEDS: QUETIAPINE FUMARATE 25MG TABLET PO SCH (09:27)
[2021-07-10 20:00] VITALS: BP 97/62
[2021-07-10] MEDS ORDERED: ZOLPIDEM TARTRATE 5MG TABLET PO NR (21:00)
[2021-07-11 08:00] VITALS: BP 114/79
[2021-07-11] MEDS: CYANOCOBALAMIN 1000MCG/ML VIAL IM SCH (09:37)
[2021-07-11] MEDS: LOSARTAN POTASSIUM 25 MG TABLET PO SCH (09:37)
[2021-07-11] MEDS: SPIRONOLACTONE 25MG TABLET PO SCH (09:38)
[2021-07-11] MEDS: FAMOTIDINE 20MG TABLET PO SCH ×2 (09:38→20:04)
[2021-07-11] MEDS: FUROSEMIDE 40MG TABLET PO SCH (09:38)
[2021-07-11] MEDS: METOPROLOL SUCCINATE 50MG ER TABLET PO SCH (09:39)
[2021-07-11] MEDS: ASPIRIN 81MG TABLET PO SCH (09:39)
[2021-07-11] MEDS: ZINC SULFATE 220 MG ( 50 ) CAPSULE PO SCH (09:39)
[2021-07-11] MEDS: ENOXAPARIN 40MG/0.4ML SYR SUBCUT SCH (09:39)
[2021-07-11] MEDS: QUETIAPINE FUMARATE 25MG TABLET PO SCH (09:39)
[2021-07-11 20:00] VITALS: BP 96/67
[2021-07-11] MEDS: ZOLPIDEM TARTRATE 5MG TABLET PO PRN (20:04)
[2021-07-12 08:00] VITALS: BP 104/65
[2021-07-12] MEDS: ZINC SULFATE 220 MG ( 50 ) CAPSULE PO SCH (08:36)
[2021-07-12] MEDS: ENOXAPARIN 40MG/0.4ML SYR SUBCUT SCH (08:37)
[2021-07-12] MEDS: SPIRONOLACTONE 25MG TABLET PO SCH (08:37)
[2021-07-12] MEDS: ASPIRIN 81MG TABLET PO SCH (08:37)
[2021-07-12] MEDS: QUETIAPINE FUMARATE 25MG TABLET PO SCH (08:37)
[2021-07-12] MEDS: FUROSEMIDE 40MG TABLET PO SCH (09:00)
[2021-07-12] MEDS: METOPROLOL SUCCINATE 50MG ER TABLET PO SCH (09:00)
[2021-07-12] MEDS: FAMOTIDINE 20MG TABLET PO SCH ×2 (09:00→20:10)
[2021-07-12] MEDS: LOSARTAN POTASSIUM 25 MG TABLET PO SCH (09:00)
[2021-07-12 20:00] VITALS: BP 108/75
[2021-07-12] MEDS: ZOLPIDEM TARTRATE 5MG TABLET PO PRN (20:10)
[2021-07-13 06:20] LABS: BASOPHILS % 1.3 % (0.0-2.0); EOSINOPHILS % 3.8 % (0.0-5.0); HEMATOCRIT. 35.2 % (36.0-48.0); HEMOGLOBIN. 12.2 g/dL (12.0-16.0); LYMPHOCYTES % 34.2 % (20.0-50.0); MEAN CORPUSCULAR VOLUME 89.2 fL (81.0-99.0); MEAN PLATELET VOLUME 9.6 fl (7.4-10.4); MONOCYTES % 9.8 % (2.0-8.0); NEUTROPHILS % 50.9 % (40.0-76.0); PLATELET 149 x1000/uL (130-400); RED BLOOD CELL COUNT 3.95 mill/uL (4.2-5.4); RED CELL DISTRIBUTION WIDTH 15.5 % (11.6-14.6)
[2021-07-13 06:47] LABS: CHLORIDE 109 mEq/L (98-107)
[2021-07-13 08:00] VITALS: BP 118/75
[2021-07-13] MEDS ORDERED: POTASSIUM CHLORIDE 20MEQ TABLET SR PO NR (08:45)
[2021-07-13] MEDS: ZINC SULFATE 220 MG ( 50 ) CAPSULE PO SCH (09:21)
[2021-07-13] MEDS: LOSARTAN POTASSIUM 25 MG TABLET PO SCH (09:21)
[2021-07-13] MEDS: QUETIAPINE FUMARATE 25MG TABLET PO SCH (09:21)
[2021-07-13] MEDS: FUROSEMIDE 40MG TABLET PO SCH (09:22)
[2021-07-13] MEDS: FAMOTIDINE 20MG TABLET PO SCH ×2 (09:22→21:04)
[2021-07-13] MEDS: ASPIRIN 81MG TABLET PO SCH (09:22)
[2021-07-13] MEDS: SPIRONOLACTONE 25MG TABLET PO SCH (09:22)
[2021-07-13] MEDS: METOPROLOL SUCCINATE 50MG ER TABLET PO SCH (09:23)
[2021-07-13] MEDS: ENOXAPARIN 40MG/0.4ML SYR SUBCUT SCH (09:33)
[2021-07-13 20:00] VITALS: BP 104/77
[2021-07-13] MEDS: ZOLPIDEM TARTRATE 5MG TABLET PO PRN (21:08)
[2021-07-14 07:37] LABS: CHLORIDE 111 mEq/L (98-107)
[2021-07-14 08:00] VITALS: BP 131/71
[2021-07-14] MEDS ORDERED: POTASSIUM CHLORIDE 20MEQ TABLET SR PO NR (08:30)
[2021-07-14] MEDS: QUETIAPINE FUMARATE 25MG TABLET PO SCH (09:03)
[2021-07-14] MEDS: LOSARTAN POTASSIUM 25 MG TABLET PO SCH (09:03)
[2021-07-14] MEDS: ASPIRIN 81MG TABLET PO SCH (09:03)
[2021-07-14] MEDS: ZINC SULFATE 220 MG ( 50 ) CAPSULE PO SCH (09:04)
[2021-07-14] MEDS: FAMOTIDINE 20MG TABLET PO SCH ×2 (09:04→21:07)
[2021-07-14] MEDS: ENOXAPARIN 40MG/0.4ML SYR SUBCUT SCH (09:04)
[2021-07-14] MEDS: FUROSEMIDE 40MG TABLET PO SCH (09:04)
[2021-07-14] MEDS: METOPROLOL SUCCINATE 50MG ER TABLET PO SCH (09:05)
[2021-07-14] MEDS: SPIRONOLACTONE 25MG TABLET PO SCH (09:10)
[2021-07-14] MEDS ORDERED: LOSA25TA3 PO (10:44)
[2021-07-14] MEDS ORDERED: FURO40TA5 PO (10:44)
[2021-07-14] MEDS ORDERED: FAMO20TA8 PO (10:44)
[2021-07-14] MEDS ORDERED: METO-385 PO (10:44)
[2021-07-14] MEDS ORDERED: SPIR25TA PO (10:44)
[2021-07-14 20:00] VITALS: BP 109/67
[2021-07-14] MEDS: ZOLPIDEM TARTRATE 5MG TABLET PO PRN (21:07)
[2021-07-15 07:58] VITALS: BP 108/63
[2021-07-15 08:00] VITALS: BP 108/63
[2021-07-15] MEDS: LOSARTAN POTASSIUM 25 MG TABLET PO SCH (09:11)
[2021-07-15] MEDS: QUETIAPINE FUMARATE 25MG TABLET PO SCH (09:12)
[2021-07-15] MEDS: FUROSEMIDE 40MG TABLET PO SCH (09:12)
[2021-07-15] MEDS: ZINC SULFATE 220 MG ( 50 ) CAPSULE PO SCH (09:13)
[2021-07-15] MEDS: ENOXAPARIN 40MG/0.4ML SYR SUBCUT SCH (09:13)
[2021-07-15] MEDS: FAMOTIDINE 20MG TABLET PO SCH (09:13)
[2021-07-15] MEDS: METOPROLOL SUCCINATE 50MG ER TABLET PO SCH (09:13)
[2021-07-15] MEDS: ASPIRIN 81MG TABLET PO SCH (09:16)
[2021-07-15] MEDS: SPIRONOLACTONE 25MG TABLET PO SCH (09:16)
[2021-07-15 13:10] LABS: 25-HYDROXY VITAMIN D3 34 ng/mL (.)
== END 2021-07-15 10:24 | disposition home health service (06) | DRG 70 ==
PROVIDERS: ADMIT Physical Medicine & Rehabilitation Spinal Cord Injury Medicine; ATTEND Internal Medicine
DX: G93.41 Metabolic encephalopathy (principal); A41.9 Sepsis, unspecified organism; G82.50 Quadriplegia, unspecified; I21.4 Non-ST elevation (NSTEMI) myocardial infarction; J15.6 Pneumonia due to other Gram-negative bacteria; J69.0 Pneumonitis due to inhalation of food and vomit; J96.21 Acute and chronic respiratory failure with hypoxia; E43 Unspecified severe protein-calorie malnutrition; I50.43 Acute on chronic combined systolic (congestive) and diastolic (congestive) heart failure; I31.3 Pericardial effusion (noninflammatory); I42.9 Cardiomyopathy, unspecified; J44.0 Chronic obstructive pulmonary disease with (acute) lower respiratory infection; R17 Unspecified jaundice; G95.20 Unspecified cord compression; D69.6 Thrombocytopenia, unspecified; I11.0 Hypertensive heart disease with heart failure; M48.061 Spinal stenosis, lumbar region without neurogenic claudication; R13.10 Dysphagia, unspecified; D63.8 Anemia in other chronic diseases classified elsewhere; E87.6 Hypokalemia; G89.4 Chronic pain syndrome; F39 Unspecified mood [affective] disorder; F41.9 Anxiety disorder, unspecified; M48.02 Spinal stenosis, cervical region; F09 Unspecified mental disorder due to known physiological condition; Z87.01 Personal history of pneumonia (recurrent); I25.2 Old myocardial infarction; Z88.8 Allergy status to other drugs, medicaments and biological substances; Z82.49 Family history of ischemic heart disease and other diseases of the circulatory system; Z68.29 Body mass index [BMI] 29.0-29.9, adult; Z79.899 Other long term (current) drug therapy; Z98.1 Arthrodesis status; M48.04 Spinal stenosis, thoracic region; R53.81 Other malaise; R74.01 Elevation of levels of liver transaminase levels; E53.8 Deficiency of other specified B group vitamins; K29.70 Gastritis, unspecified, without bleeding
CPT/HCPCS: 36415; 71045; 80048; 80053; 81003; 82140; 82306; 82607; 82728; 82746; 83540; 83550; 84134; 84443; 85025; 92523; 92610; 93970; 94640; 97110; 97112; 97116; 97162; 97166; 97530; 97535; C9113; J0692; J1650; J3420; J3490; J7060; J7512; A5200

== ENCOUNTER 2021-07-28 18:56 | Emergency (ER) | payer MEDICARE, MEDICAID ==
[~2021-07-28] VITALS: Ht 165.1 cm; Wt 82.0 kg
[~2021-07-28 18:56] MED LIST changes: -ATOR20TA65 MT; -CEFP200T13 MT; -CHOL200059 MT; +FAMO20TA8 PO; +FURO40TA5 PO; -GABA-532 MT; -HYDR-523 PO; -LIDO15CR11 TP; -LOSA100T32 MT; +LOSA25TA3 PO; +METO-385 PO; -METO5TAB86 MT; -MUPI15CR13 TP; -OMEP40CA20 MT; -PANT40SU MT; +SPIR25TA PO
[2021-07-28 19:11] VITALS: BP 113/80
[2021-07-28 20:08] LABS: EOSINOPHILS % 1.4 % (0.0-5.0); HEMATOCRIT. 34.2 % (36.0-48.0); HEMOGLOBIN. 11.3 g/dL (12.0-16.0); LYMPHOCYTES % 38.3 % (20.0-50.0); MEAN CORPUSCULAR HEMOGLOBIN 30.5 pg (28.0-32.0); MEAN CORPUSCULAR VOLUME 92.4 fL (81.0-99.0); MEAN PLATELET VOLUME 9.7 fl (7.4-10.4); MONOCYTES % 10.7 % (2.0-8.0); NEUTROPHILS % 48.6 % (40.0-76.0); PLATELET 115 x1000/uL (130-400); RED CELL DISTRIBUTION WIDTH 15.5 % (11.6-14.6)
[2021-07-28 20:14] LABS: CHLORIDE 112 mEq/L (98-107)
== END 2021-07-28 23:57 | disposition home or self-care (01) ==
LOC: ER 18:56
DX: R22.43 Localized swelling, mass and lump, lower limb, bilateral (principal); I10 Essential (primary) hypertension; J44.9 Chronic obstructive pulmonary disease, unspecified; F41.9 Anxiety disorder, unspecified; E78.00 Pure hypercholesterolemia, unspecified; Z90.710 Acquired absence of both cervix and uterus; Z88.6 Allergy status to analgesic agent
CPT/HCPCS: 36415; 71045; 80053; 83880; 85025; 93005; 93970; 99285

== ENCOUNTER 2022-02-16 06:12 | Emergency (ER) | payer MEDICARE, MEDICAID ==
[~2022-02-16] VITALS: Ht 165.1 cm; Wt 86.0 kg
[2022-02-16] MEDS ORDERED: HYDROCODONE/ACETAMINOPHEN 7.5/325MG TABLET PO ONE (09:45)
[2022-02-16 10:16] VITALS: BP 137/92
[2022-02-16] MEDS ORDERED: HYDR-4005 MT (12:31)
== END 2022-02-16 12:54 | disposition home or self-care (01) ==
LOC: ER 06:12
DX: S42.391A Other fracture of shaft of right humerus, initial encounter for closed fracture (principal); F41.9 Anxiety disorder, unspecified; E78.00 Pure hypercholesterolemia, unspecified; I10 Essential (primary) hypertension; Z90.710 Acquired absence of both cervix and uterus; Z88.8 Allergy status to other drugs, medicaments and biological substances; Z88.6 Allergy status to analgesic agent; W01.0XXA Fall on same level from slipping, tripping and stumbling without subsequent striking against object, initial encounter; Y93.89 Activity, other specified; Y92.89 Other specified places as the place of occurrence of the external cause
CPT/HCPCS: 73060; 99283

== ENCOUNTER 2022-02-18 04:43 | Emergency (ER) | payer MEDICARE, MEDICAID ==
[~2022-02-18] VITALS: Ht 162.6 cm; Wt 87.9 kg
[~2022-02-18 04:43] MED LIST changes: +HYDR-4005 MT
[2022-02-18 04:45] VITALS: BP 132/87
[2022-02-18] MEDS ORDERED: HYDROCODONE/ACETAMINOPHEN 5/325MG TABLET PO ONE (05:15)
[2022-02-18] MEDS ORDERED: HYDROCODONE/ACETAMINOPHEN 5/325MG TABLET PO NR (07:00)
[2022-02-18] MEDS ORDERED: T3 PO ×2 (07:05)
== END 2022-02-18 07:57 | disposition home or self-care (01) ==
LOC: ER 04:43
DX: S42.391D Other fracture of shaft of right humerus, subsequent encounter for fracture with routine healing (principal); X58.XXXD Exposure to other specified factors, subsequent encounter; F41.9 Anxiety disorder, unspecified; E78.00 Pure hypercholesterolemia, unspecified; I10 Essential (primary) hypertension; Z88.6 Allergy status to analgesic agent; Z88.8 Allergy status to other drugs, medicaments and biological substances; Z87.440 Personal history of urinary (tract) infections; Z90.710 Acquired absence of both cervix and uterus
CPT/HCPCS: 99283

== ENCOUNTER 2022-02-23 13:39 | Emergency (ER) | payer MEDICARE, MEDICAID ==
[~2022-02-23] VITALS: Ht 172.7 cm; Wt 86.0 kg
[2022-02-23 13:46] VITALS: BP 151/85
== END 2022-02-23 21:05 | disposition home or self-care (01) ==
LOC: ER 13:39
DX: S42.301A Unspecified fracture of shaft of humerus, right arm, initial encounter for closed fracture (principal); I10 Essential (primary) hypertension; E78.00 Pure hypercholesterolemia, unspecified; F41.9 Anxiety disorder, unspecified; Z90.710 Acquired absence of both cervix and uterus; Z88.8 Allergy status to other drugs, medicaments and biological substances; Z88.6 Allergy status to analgesic agent; X58.XXXA Exposure to other specified factors, initial encounter; Y93.89 Activity, other specified; Y92.89 Other specified places as the place of occurrence of the external cause; Y99.8 Other external cause status
CPT/HCPCS: 73090; 73110; 73120; 99284

== ENCOUNTER 2022-06-07 07:35 | Emergency (ER) | payer MEDICARE, MEDICAID ==
[~2022-06-07] VITALS: Ht 165.1 cm; Wt 86.4 kg
[2022-06-07] MEDS ORDERED: SODIUM CHLORIDE 0.9% 1,000 ML IV ONE (07:45)
[2022-06-07] MEDS ORDERED: SODIUM CHLORIDE 0.9% 500 ML IV ONE (07:45)
[2022-06-07 08:17] LABS: BASOPHILS % 0.6 % (0.0-2.0); HEMATOCRIT. 39.5 % (36.0-48.0); HEMOGLOBIN. 13.4 g/dL (12.0-16.0); LYMPHOCYTES % 34.8 % (20.0-50.0); MEAN CORPUSCULAR HEMOGLOBIN 29.7 pg (28.0-32.0); MEAN CORPUSCULAR VOLUME 87.3 fL (81.0-99.0); MEAN PLATELET VOLUME 8.6 fl (7.4-10.4); MONOCYTES % 5.9 % (2.0-8.0); NEUTROPHILS % 57.7 % (40.0-76.0); PLATELET 197 x1000/uL (130-400); RED BLOOD CELL COUNT 4.53 mill/uL (4.2-5.4); RED CELL DISTRIBUTION WIDTH 15.9 % (11.6-14.6)
[2022-06-07 08:25] LABS: CHLORIDE 108 mEq/L (98-107)
[2022-06-07] MEDS ORDERED: ONDANSETRON HCL 4MG/2ML INJ IV ONE (10:15)
[2022-06-07] MEDS ORDERED: LOPERAMIDE HCL 2MG CAPSULE PO SCH (10:15)
[2022-06-07] MEDS ORDERED: POTASSIUM CHLORIDE INJ 40 MEQ in DEXT 5% WATER 250 ML IV ONE (10:15)
[2022-06-07] MEDS ORDERED: IOHEXOL-300 100 ML BOTTLE ONE (10:41)
[2022-06-07 11:00] VITALS: BP 132/88
[2022-06-07] MEDS ORDERED: KCL 20MEQ/100ML X 2 FOR TOTAL KCL 40MEQ/200ML IV SCH (11:00)
[2022-06-07 14:21] LABS: CLARITY URINE CLEAR (CLEAR); COLOR URINE YELLOW (YELLOW); KETONES URINE 1+ (NEGATIVE); LEUKOCYTE ESTERASE URINE NEGATIVE (NEGATIVE); NITRITE URINE NEGATIVE (NEGATIVE); OCCULT BLOOD URINE NEGATIVE (NEGATIVE); PROTEIN URINE NEGATIVE (NEGATIVE); SPECIFIC GRAVITY URINE 1.076 (1.005-1.030)
[2022-06-07] MEDS ORDERED: LOPE2CAP MT (14:50)
[2022-06-07] MEDS ORDERED: TOPUD MT (14:51)
[2022-06-07] MEDS ORDERED: MAGNESIUM/ALUMINUM HYDROXIDE/SIMETHICONE 30ML UDC PO NR (15:00)
[2022-06-07] MEDS ORDERED: ACETAMINOPHEN 325MG TABLET PO NR (15:00)
[2022-06-07] MEDS ORDERED: PANTOPRAZOLE SODIUM 40 MG/VIAL IV NR (15:00)
== END 2022-06-07 15:00 | disposition home or self-care (01) ==
LOC: ER 07:35
DX: R19.7 Diarrhea, unspecified (principal); R10.9 Unspecified abdominal pain; F41.9 Anxiety disorder, unspecified; E78.00 Pure hypercholesterolemia, unspecified; I10 Essential (primary) hypertension; Z87.440 Personal history of urinary (tract) infections; Z79.899 Other long term (current) drug therapy
CPT/HCPCS: 36415; 74177; 80053; 81003; 83690; 84484; 85025; 93005; 96361; 96365; 96375; 99285; C1893; J2405; J3480; J7030; J7040; Q9967

== ENCOUNTER 2022-06-16 10:03 | Emergency (ER) | payer MEDICARE, MEDICAID ==
[~2022-06-16] VITALS: Ht 165.1 cm; Wt 86.0 kg
[~2022-06-16 10:03] MED LIST changes: +LOPE2CAP MT; +TOPUD MT
[2022-06-16 10:29] LABS: BASOPHILS % 0.6 % (0.0-2.0); EOSINOPHILS % 2.6 % (0.0-5.0); HEMATOCRIT. 36.8 % (36.0-48.0); HEMOGLOBIN. 12.4 g/dL (12.0-16.0); LYMPHOCYTES % 36.3 % (20.0-50.0); MEAN CORPUSCULAR HEMOGLOBIN 29.9 pg (28.0-32.0); MEAN CORPUSCULAR VOLUME 88.6 fL (81.0-99.0); MEAN PLATELET VOLUME 9.6 fl (7.4-10.4); MONOCYTES % 9.7 % (2.0-8.0); NEUTROPHILS % 50.8 % (40.0-76.0); PLATELET 159 x1000/uL (130-400); RED BLOOD CELL COUNT 4.15 mill/uL (4.2-5.4); RED CELL DISTRIBUTION WIDTH 16.4 % (11.6-14.6)
[2022-06-16 10:55] LABS: CHLORIDE 112 mEq/L (98-107)
[2022-06-16] MEDS ORDERED: ACETAMINOPHEN 325MG TABLET PO ONE (13:15)
[2022-06-16 13:17] VITALS: BP 136/81
== END 2022-06-16 13:21 | disposition home or self-care (01) ==
LOC: ER 10:03
DX: R60.0 Localized edema (principal); E78.00 Pure hypercholesterolemia, unspecified; I10 Essential (primary) hypertension
CPT/HCPCS: 36415; 80053; 85025; 93971; 99284

== ENCOUNTER 2022-07-13 17:39 | Emergency (ER) | payer MEDICARE, MEDICAID ==
[~2022-07-13] VITALS: Ht 165.1 cm; Wt 86.0 kg
[2022-07-13 18:50] LABS: BASOPHILS % 0.7 % (0.0-2.0); EOSINOPHILS % 2.8 % (0.0-5.0); HEMATOCRIT. 35.9 % (36.0-48.0); HEMOGLOBIN. 12.1 g/dL (12.0-16.0); LYMPHOCYTES % 41.7 % (20.0-50.0); MEAN CORPUSCULAR HEMOGLOBIN 30.4 pg (28.0-32.0); MEAN PLATELET VOLUME 9.5 fl (7.4-10.4); MONOCYTES % 9.4 % (2.0-8.0); NEUTROPHILS % 45.4 % (40.0-76.0); PLATELET 161 x1000/uL (130-400); RED BLOOD CELL COUNT 3.99 mill/uL (4.2-5.4); RED CELL DISTRIBUTION WIDTH 15.9 % (11.6-14.6)
[2022-07-13 19:01] LABS: CHLORIDE 111 mEq/L (98-107)
[2022-07-13] MEDS ORDERED: HYDROCODONE/ACETAMINOPHEN 5/325MG TABLET PO ONE (21:30)
[2022-07-14] MEDS ORDERED: FURO-152 MT (00:14)
[2022-07-14 00:34] VITALS: BP 141/80
== END 2022-07-14 00:37 | disposition home or self-care (01) ==
LOC: ER 17:39
DX: I89.0 Lymphedema, not elsewhere classified (principal); I12.9 Hypertensive chronic kidney disease with stage 1 through stage 4 chronic kidney disease, or unspecified chronic kidney disease; E11.22 Type 2 diabetes mellitus with diabetic chronic kidney disease; N18.9 Chronic kidney disease, unspecified; F41.9 Anxiety disorder, unspecified; E78.00 Pure hypercholesterolemia, unspecified; Z88.6 Allergy status to analgesic agent; Z88.8 Allergy status to other drugs, medicaments and biological substances
CPT/HCPCS: 36415; 71045; 80053; 83880; 84484; 85025; 93005; 93970; 99285

== ENCOUNTER 2022-07-15 12:54 | Emergency (ER) | payer MEDICARE, MEDICAID ==
[~2022-07-15] VITALS: Ht 165.1 cm; Wt 85.0 kg
[~2022-07-15 12:54] MED LIST changes: +FURO-152 MT
[2022-07-15] MEDS ORDERED: ACETAMINOPHEN 325MG TABLET PO ONE (13:15)
[2022-07-15 13:43] LABS: BASOPHILS % 0.5 % (0.0-2.0); EOSINOPHILS % 2.5 % (0.0-5.0); HEMATOCRIT. 38.6 % (36.0-48.0); HEMOGLOBIN. 12.7 g/dL (12.0-16.0); LYMPHOCYTES % 36.3 % (20.0-50.0); MEAN CORPUSCULAR HEMOGLOBIN 29.8 pg (28.0-32.0); MEAN CORPUSCULAR VOLUME 90.7 fL (81.0-99.0); MEAN PLATELET VOLUME 10.1 fl (7.4-10.4); MONOCYTES % 7.3 % (2.0-8.0); NEUTROPHILS % 53.4 % (40.0-76.0); PLATELET 117 x1000/uL (130-400); RED BLOOD CELL COUNT 4.25 mill/uL (4.2-5.4); RED CELL DISTRIBUTION WIDTH 16.4 % (11.6-14.6)
[2022-07-15 13:44] LABS: CHLORIDE 105 mEq/L (98-107)
[2022-07-15 15:53] VITALS: BP 139/88
== END 2022-07-15 15:57 | disposition home or self-care (01) ==
LOC: ER 13:05
DX: S42.301A Unspecified fracture of shaft of humerus, right arm, initial encounter for closed fracture (principal); M25.461 Effusion, right knee; I10 Essential (primary) hypertension; E78.00 Pure hypercholesterolemia, unspecified; R51.9 Headache, unspecified; W18.09XA Striking against other object with subsequent fall, initial encounter; Y93.89 Activity, other specified; Y92.89 Other specified places as the place of occurrence of the external cause; Y99.8 Other external cause status; Z88.6 Allergy status to analgesic agent; Z88.9 Allergy status to unspecified drugs, medicaments and biological substances; Z79.899 Other long term (current) drug therapy
CPT/HCPCS: 36415; 71250; 72192; 73030; 73060; 73070; 73560; 80053; 85025; 99285

== ENCOUNTER 2023-08-15 15:58 | Emergency (ER) | payer MEDICARE, MEDICAID ==
[~2023-08-15] VITALS: Ht 170.2 cm; Wt 93.0 kg
[~2023-08-15 15:58] MED LIST changes: +LOSA-412 PO; -LOSA25TA3 PO
[2023-08-15 16:11] VITALS: O2SAT 96
[2023-08-15] MEDS: ACETAMINOPHEN 500MG TABLET PO ONE (17:00)
[2023-08-15 17:50] LABS: BASOPHILS % 1.4 % (0.0-2.0); EOSINOPHILS % 1.5 % (0.0-5.0); HEMATOCRIT. 37.9 % (36.0-48.0); HEMOGLOBIN. 12.3 g/dL (12.0-16.0); LYMPHOCYTES % 37.1 % (20.0-50.0); MEAN CORPUSCULAR HGB CONC 32.4 g/dL (31.0-37.0); MONOCYTES % 10.8 % (2.0-8.0); NEUTROPHILS % 49.2 % (40.0-76.0); RED BLOOD CELL COUNT 4.74 mill/uL (4.2-5.4); RED CELL DISTRIBUTION WIDTH 25.8 % (11.6-14.6); WHITE BLOOD COUNT 3.7 x1000/uL (4.5-11.0)
[2023-08-15 17:52] LABS: DIFFERENTIAL COMMENT 1
[2023-08-15 17:57] LABS: CHLORIDE 104 mEq/L (98-107); POTASSIUM 3.2 mEq/L (3.5-5.1); SODIUM 141 mEq/L (136-145)
[2023-08-15 17:58] LABS: CALCIUM 9.3 mg/dL (8.7-10.4); CARBON DIOXIDE 26 mEq/L (21-32)
[2023-08-15 18:03] LABS: CREATININE 0.8 mg/dL (0.6-1.0); GLUCOSE 106 mg/dL (70-105); UREA NITROGEN BLOOD 16 mg/dL (9-23)
[2023-08-15 18:05] LABS: ALANINE AMINOTRANSFERASE 9 IU/L (10-49); ALBUMIN 3.8 g/dL (3.2-4.8); ASPARTATE AMINOTRANSFERASE 16 IU/L (<34); BILIRUBIN TOTAL 0.9 mg/dL (0.1-1.0)
[2023-08-15 18:09] LABS: MEAN PLATELET VOLUME 9.5 fl (7.4-10.4); PLATELET 139 x1000/uL (130-400)
[2023-08-15] MEDS: POTASSIUM CHLORIDE 20MEQ TABLET SR PO ONE (18:30)
[2023-08-15 20:09] LABS: CLARITY URINE CLOUDY (CLEAR); COLOR URINE DARK YELLOW (YELLOW); GLUCOSE URINE NEGATIVE (NEGATIVE); KETONES URINE 1+ (NEGATIVE); LEUKOCYTE ESTERASE URINE NEGATIVE (NEGATIVE); NITRITE URINE NEGATIVE (NEGATIVE); OCCULT BLOOD URINE NEGATIVE (NEGATIVE); PH URINE 5.5 (4.5-8.0); PROTEIN URINE TRACE (NEGATIVE); SPECIFIC GRAVITY URINE 1.036 (1.005-1.030)
[2023-08-15 20:27] LABS: BACTERIA URINE 1+; RBC URINE 0-2 /hpf (0-2); SQUAMOUS EPITHELIAL CELL URINE 1+ /lpf (RARE/1+)
[2023-08-15] MEDS ORDERED: TOPUD PO (20:50)
[2023-08-15] MEDS ORDERED: LIDO1ADH7 TP (20:50)
[2023-08-15 21:10] VITALS: BP 135/77; PULSE 67; RESP 18; TEMP 98.4
== END 2023-08-15 21:11 | disposition home or self-care (01) ==
LOC: ER 15:58
DX: R10.32 Left lower quadrant pain (principal); E87.6 Hypokalemia; D64.9 Anemia, unspecified; F41.9 Anxiety disorder, unspecified; I50.9 Heart failure, unspecified; I11.0 Hypertensive heart disease with heart failure; E78.00 Pure hypercholesterolemia, unspecified; Z90.710 Acquired absence of both cervix and uterus; Z90.89 Acquired absence of other organs; Z88.6 Allergy status to analgesic agent; Z88.8 Allergy status to other drugs, medicaments and biological substances
CPT/HCPCS: 36415; 74176; 80053; 81003; 85025; 99284

== ENCOUNTER 2023-11-01 16:31 | Emergency (ER) | payer MEDICARE, MEDICAID ==
[~2023-11-01] VITALS: Ht 167.6 cm; Wt 82.0 kg
[~2023-11-01 16:31] MED LIST changes: +LIDO1ADH7 TP; +TOPUD PO
[2023-11-01 16:36] VITALS: O2SAT 95
[2023-11-01] MEDS ORDERED: CYCLOBENZAPRINE 10MG TABLET PO STA (20:23)
[2023-11-01] MEDS ORDERED: ACETAMINOPHEN 325MG TABLET PO ONE (20:30)
[2023-11-01] MEDS: CYCLOBENZAPRINE 10MG TABLET PO NR (21:46)
[2023-11-01] MEDS: ACETAMINOPHEN 325MG TABLET PO NR (21:46)
[2023-11-01] MEDS ORDERED: TOPUD MT (23:27)
[2023-11-01] MEDS ORDERED: CYCL5TAB MT (23:27)
[2023-11-01 23:33] VITALS: BP 143/86; PULSE 86; RESP 18; TEMP 36.78072; O2SAT 95
== END 2023-11-01 23:35 | disposition home or self-care (01) ==
LOC: ER 16:31
DX: M54.9 Dorsalgia, unspecified (principal); I11.0 Hypertensive heart disease with heart failure; I50.9 Heart failure, unspecified; Z88.6 Allergy status to analgesic agent; Z79.899 Other long term (current) drug therapy; Z88.8 Allergy status to other drugs, medicaments and biological substances
CPT/HCPCS: 72100; 99283